=== PATIENT | female | born 1955 | race Caucasian/White ===

== ENCOUNTER → 2018-02-07 12:10 | Outpatient (CLI) | payer BC, SELFPAY ==
--- NOTE | 2018-02-07 | DI.MRI.S_ITS ---
PROCEDURE: MR LUMBAR SPINE WO CON INDICATIONS: Scoliosis/Radiculopathy, lumbar region TECHNIQUE: Noncontrast sagittal T1 spin echo and T2 fast echo, coronal T2, sagittal STIR, axial T1 and T2 fast spin echo through the lumbar spine. COMPARISON: [facility], MR, MR LUMBAR SPINE WO CON, 09/23/2015, 12:59. [facility] [place], CR, SPINE LUMB MIN 4VW, 09/13/2015, 15:05. FINDINGS: Image quality: Excellent. Alignment and Curvature: 5 lumbar type vertebral bodies are present by plain film. There is moderate to severe leftward curvature of the mid lumbar spine. There is mild grade 1 retrolisthesis of L1 on L2, and L2 on L3. There is mild grade 1 anterolisthesis of L4 on L5. Bone Marrow: Marrow is of normal overall signal. No acute vertebral body compression fractures. There is increased, severe Modic type I reactive signal within the endplates adjacent to the L2-L3 intervertebral disc. There is moderate reactive signal within the endplates adjacent to the L3-L4 and L4-L5 intervertebral discs. Mild reactive signal within the endplates adjacent to the L5-S1 intervertebral disc. Spinal Cord: Conus medullaris terminates at the L1-L2 disc space level. Visualized cord demonstrates normal signal and size. Paraspinous Soft Tissues: No paravertebral masses. L1-L2: Congenital canal stenosis. Moderate disc desiccation. Mild disc height loss. Mild diffuse disc bulge. Mild facet and ligamentum flavum hypertrophy. Moderate epidural lipomatosis. There is increased, moderate canal stenosis. Increased, mild left greater than right foraminal stenosis. L2-L3: Congenital canal stenosis. Moderate disc height loss and desiccation. Moderate diffuse disc bulge/osteophyte. Moderate facet and ligamentum hypertrophy. Mild epidural lipomatosis. Increased, severe canal stenosis. Increased, mild left and moderate right foraminal stenosis. L3-L4: Congenital canal stenosis. Severe disc height loss and desiccation. Moderate diffuse disc bulge. Moderate facet and ligament flavum hypertrophy. Mild epidural lipomatosis. Increased, severe canal stenosis. Increased, mild left and moderate right foraminal stenosis. L4-L5: Congenital canal stenosis. Moderate disc height loss and desiccation. Moderate diffuse disc bulge/osteophyte. Moderate facet and ligamentum flavum hypertrophy. Mild epidural lipomatosis. Increased, severe canal stenosis. Increased, moderate bilateral foraminal stenosis. L5-S1: Moderate disc height loss and desiccation. Moderate bilateral facet hypertrophy. Moderate diffuse epidural lipomatosis. No change in severe canal stenosis. No change in moderate bilateral foraminal stenosis. IMPRESSION: 1. Multilevel degenerative disc and facet disease, as well as ligamentum flavum hypertrophy and epidural lipomatosis. 2. Multilevel canal stenoses, worst at L2-L3, L3-L4, L4-L5, and L5-S1, where there are severe canal stenoses present. 3. Multilevel foraminal stenoses, worst at L2-L3 on the right, L3-L4 on the right, at L4-L5 bilaterally, and at L5-S1 bilaterally, where there are moderate foraminal stenoses present. Dictated by: Jie Powell M.D. on 02/07/2018 at 13:40 Approved by: Jie Powell M.D. on 02/07/2018 at 13:48
== END ==
PROVIDERS: PCP Physician Assistant Medical; Visit Provider Neurological Surgery
DX: M51.16 Intervertebral disc disorders with radiculopathy, lumbar region (principal); M51.17 Intervertebral disc disorders with radiculopathy, lumbosacral region; M48.061 Spinal stenosis, lumbar region without neurogenic claudication; M48.07 Spinal stenosis, lumbosacral region; M51.9 Unspecified thoracic, thoracolumbar and lumbosacral intervertebral disc disorder; E88.2 Lipomatosis, not elsewhere classified
CPT/HCPCS: 72148; 77080

== ENCOUNTER → 2018-03-14 13:00 | Outpatient (CLI) | payer BC, SELFPAY ==
--- NOTE | 2018-03-18 08:44 | PM.PFT.1 ---
Pulmonary Function Test Referral & Results Date Patient Seen: 03/14/18 Requesting provider: Fernando Chris Indication: Dyspnea upon exertion Results: The spirometry demonstrates an FVC of 1.68 L which is 66% of predicted. The FEV1 was measured at 1.38 L which is 71% of predicted. The FEV1/FVC ratio was 82 which is 106% of predicted. Following the administration of bronchodilator there was no appreciable change. Lung volumes show an SVC of 1.77 L which is 73% of predicted. The diffusing capacity was measured at 15.81 which is 97% of predicted. The maximum voluntary ventilation was reduced Interpretation: This study demonstrates perhaps mild her obstructive lung disease based on reduction in FEV1. Also reduction FEC suggesting incomplete excellent sheppard as well. There is also mild reduction in lung volumes suggesting perhaps some minimal degree of restrictive lung disease although could be an artifact due to incomplete exhalation as above. Clinical correlation suggested
== END ==
PROVIDERS: PCP Physician Assistant Medical; Visit Provider Internal Medicine
DX: R06.09 Other forms of dyspnea (principal)
CPT/HCPCS: 94060; 94726; 94729

== ENCOUNTER → 2018-03-19 14:49 | Outpatient (CLI) | payer BC, SELFPAY ==
--- NOTE | 2018-03-19 | DI.ECHO.S_ITS ---
[place] [facility]---------+ [facility] +---------+ : : [address] : : : : [id number] : : : : Phone: [phone] Echocardiogram Report + + :Name: NILTON STOCK Study Date: 03/19/2018 Height: 59 in : :[facility] Exam Location: IS Weight: 150 lb : : Gender: Female BSA: 1.6 m2 : :: 1955 Age: 63 yrs BP: 145/88 mmHg: :Reason For Study: DYSPNEA : : Performed By: Tanner Corrales : :Referring: DICKSON PATEL : + + Interpretation Summary The left ventricle is normal in size, wall thickness, and systolic function without any focal wall motion abnormalities with the ejection fraction visually estimated to be 60-65%. Diastolic parameters suggest a relaxation abnormality of the left ventricle, consistent with probable normal filling pressures. The right ventricle is normal in size and function. Pulmonary artery pressures cannot be estimated because of the lack of a measurable TR jet velocity but the IVC suggests a CVP of around 3 mmHg. Both atria are normal in size. There is no significant valvular heart disease. Procedure: A two-dimensional transthoracic echocardiogram with color flow and Doppler was performed. The study quality was technically adequate. There is no prior echocardiogram noted for this patient. The patient was in normal sinus rhythm during the exam. Left Ventricle: The left ventricle is normal in size, wall thickness, and systolic function without any focal wall motion abnormalities. The ejection fraction is estimated to be 60-65%. Diastolic parameters suggest a relaxation abnormality of the left ventricle, consistent with probable normal filling pressures. Right Ventricle: The right ventricle is normal in size and function. Atria: Both atria are normal in size. The interatrial septum is intact with no evidence for an atrial septal defect. Mitral Valve: The mitral valve is normal in structure and function. There is trace mitral regurgitation. Aortic Valve: The aortic valve is normal in structure and function. The aortic valve is trileaflet. The aortic valve opens well. No aortic regurgitation is present. Tricuspid Valve: The tricuspid valve is normal in structure and function. There is trace tricuspid regurgitation. Pulmonary artery pressures cannot be estimated because of the lack of a measurable TR jet velocity but the IVC suggests a CVP of around 3 mmHg. Pulmonic Valve: The pulmonic valve is not well visualized. There is no significant valvular heart disease. Great Vessels: The aortic root is normal size. The dimensions of the ascending aorta are normal. The pulmonary artery is normal size. The IVC is of normal diameter and collapses greater than 50% with a sniff. This suggests a low right atrial pressure of 3 mm Hg. Pericardium/ Pleura There is no pericardial effusion. There is no pleural effusion. MMode/2D Measurements & Calculations LVIDd: 4.3 cm Ao root diam: 2.4 cm LVIDs: 2.5 cm Aortic Jxn: 1.8 cm FS: 42.5 % asc Aorta Diam: 2.7 cm EPSS: 0.14 cm Ao Arch Diam (Prox Trans): 2.1 cm IVSd: 0.97 cm LVPWd: 0.93 cm LV lemus. diameter/BSA (cm/m^2): 2.6 LV sys. diameter/BSA (cm/m^2): 1.5 LA dimension: 3.4 cm RA long axis: 3.8 cm LA A2 area: 13.8 cm2 RA area: 10.6 cm2 LA A4 area: 15.1 cm2 RA vol: 25.2 ml LA length (vol): 4.8 cm RA : 15.4 ml/m2 LA vol: 37.0 ml IVC diam: 1.4 cm LA vol index: 22.7 ml/m2 Doppler Measurements & Calculations Ao V2 max: 137.9 cm/sec LVOT Max Luis: 101.6 cm/sec Ao V2 mean: 101.1 cm/sec LV V1 max P.1 mmHg Ao max P.6 mmHg LV V1 VTI: 24.2 cm Ao mean P.4 mmHg sev ratio: 0.78 Ao V2 VTI: 30.8 cm MV E max luis: 87.6 cm/sec PA V2 max: 84.2 cm/sec MV A max luis: 88.5 cm/sec PA V2 mean: 60.3 cm/sec MV E/A: 0.99 PA mean P.6 mmHg Med Peak E' Luis: 4.4 cm/sec PA pr(Accel): 9.1 mmHg E/E' med: 19.7 PA Accel Time: 0.15 sec Lat Peak E' Luis: 7.0 cm/sec E/E' lat: 12.5 E/e' average: 16.1 MV dec time: 0.20 sec Pulm A Revs Luis: 27.4 cm/sec Electronically signed by: Landry christian 03/19/2018 04:56 Reading Physician:ISHA
== END ==
PROVIDERS: PCP Physician Assistant Medical; Visit Provider Internal Medicine
DX: R06.00 Dyspnea, unspecified (principal)
CPT/HCPCS: 93306

== ENCOUNTER → 2018-05-26 12:17 | Outpatient (CLI) | payer BC, SELFPAY ==
--- NOTE | 2018-05-26 | DI.CT.S_ITS ---
PROCEDURE: CT CHEST WO CON INDICATIONS: Dyspnea, TECHNIQUE: Noncontrast 5 mm thick sections acquired from the pulmonary apices to the posterior costophrenic angles. 7 mm thick coronal and sagittal MIP reformats were then acquired. For radiation dose reduction, the following was used: automated exposure control, adjustment of mA and/or kV according to patient size. COMPARISON: None. FINDINGS: Image quality: Excellent. Lungs and pleura: No acute air space opacities. There is a band of linear scarring or atelectasis left lower lobe No pleural effusions or pneumothorax. Central and peripheral airways are patent and normal in caliber. Mediastinum: Heart size is normal. No pericardial effusion. No mediastinal adenopathy by size criteria. Thoracic aorta and central pulmonary arteries are normal in size. Esophagus is normal in caliber. No hiatal hernia. Bones and chest wall: No suspicious bony lesions. No vertebral body compression fractures. No axillary or supraclavicular adenopathy by size criteria. Thyroid gland appears normal where well visualized. Abdomen: Visualized upper abdominal solid organs and bowel loops appear normal in the absence of contrast except for several left renal calcifications, punctate, partially visualized. IMPRESSION: Through the lung parenchyma no infection or neoplasm is suspected. No pulmonary fibrosis or alveolitis is seen. There is a band of mild linear atelectasis or scarring left lower lobe. Incidental note is made of several left renal punctate calcifications, with an appearance suggestive of medullary calcinosis. Dictated by: Yuriy Isaac M.D. on 05/26/2018 at 12:58 Approved by: Yuriy Isaac M.D. on 05/26/2018 at 13:00
== END ==
PROVIDERS: PCP Physician Assistant Medical; Visit Provider Internal Medicine
DX: R06.00 Dyspnea, unspecified (principal); N28.89 Other specified disorders of kidney and ureter
CPT/HCPCS: 71250

== ENCOUNTER → 2018-10-30 12:00 | Outpatient (CLI) | payer BC, SELFPAY ==
--- NOTE | 2018-10-30 | DI.US.S_ITS ---
PROCEDURE: US ARTERIAL DUPLEX LE BI INDICATIONS: CLAUDICATION BILATERAL TECHNIQUE: Color and pulse Doppler interrogation was performed of both lower extremity arterial systems, with image documentation. COMPARISON: None. FINDINGS: Right lower extremity: Common femoral artery: 155 cm/sec, with monophasic flow. Deep femoral artery: 55 cm/sec, with monophasic flow. Proximal superficial femoral artery: 543 cm/sec, with monophasic flow. Mid superficial femoral artery: 128 cm/sec, with monophasic flow. Distal superficial femoral artery: 80 cm/sec, with monophasic flow. Popliteal artery: 40-75 cm/sec, with monophasic flow. Posterior tibial artery: 46-51 cm/sec, with monophasic flow. Anterior tibial artery/dorsalis pedis: 37-43 cm/sec, with monophasic flow. House-scale imaging description: Moderate diffuse plaque Left lower extremity: Common femoral artery: 246 cm/sec, with triphasic flow. Deep femoral artery: 215 cm/sec, with triphasic flow. Proximal superficial femoral artery: 175 cm/sec, with triphasic flow. Mid superficial femoral artery: 171 cm/sec, with triphasic flow. Distal superficial femoral artery: 88 cm/sec, with triphasic flow. Popliteal artery: 75-87 cm/sec, with triphasic flow. Posterior tibial artery: 69-83 cm/sec, with triphasic flow. Anterior tibial artery/dorsalis pedis: 53-96 cm/sec, with triphasic flow. House-scale imaging description: Moderate diffuse plaque IMPRESSION: 1. Bilateral inflow stenoses. 2. Right-sided outflow stenosis. 3. Probable left-sided runoff vessel stenoses. Dictated by: Jie Powell M.D. on 10/30/2018 at 14:48 Approved by: Jie Powell M.D. on 10/30/2018 at 15:01
== END ==
PROVIDERS: PCP Family Medicine; Visit Provider Family Medicine
DX: I70.213 Atherosclerosis of native arteries of extremities with intermittent claudication, bilateral legs (principal)
CPT/HCPCS: 93925

== ENCOUNTER → 2019-01-05 16:02 | Outpatient (CLI) | payer BC, SELFPAY ==
--- NOTE | 2019-01-05 | DI.RAD.S_ITS ---
PROCEDURE: XR T AND L SPINE 2 TO 3 VIEWS INDICATIONS: Scoliosis TECHNIQUE: 2 views acquired of the thoracolumbar spine. COMPARISON: CT chest 05/26/2018, MRI lumbar spine at 02/07/2018. FINDINGS: Bones: Lumbar spine fixation hardware spanning the L2-S1 levels with intervertebral body spacers. The pedicle screws project in the expected locations. No santiago-screw lucency. No hardware or osseous fracture seen. Vertebral body height is preserved. No suspicious osseous lesion. There is minimal levoscoliosis of the lumbar spine centered at L3-L4. There is minimal extra scoliosis of the thoracic spine. There is minimal increased lumbar lordosis. Soft tissues: No suspicious soft tissue calcifications. Abdominal aortic vascular calcification. Cardiomediastinal silhouette is normal. The lungs are clear. No pleural effusion. IMPRESSION: Minimal levoscoliosis of the lumbar spine. Fixation hardware is intact. No compression fractures. Dictated by: Ranjeet Momin M.D. on 01/05/2019 at 16:40 Approved by: Ranjeet Momin M.D. on 01/05/2019 at 16:47
== END ==
PROVIDERS: PCP Family Medicine; Visit Provider Neurological Surgery
DX: M41.9 Scoliosis, unspecified (principal)
CPT/HCPCS: 72082

== ENCOUNTER → 2020-02-10 08:53 | Outpatient (CLI) | payer BC, SELFPAY ==
--- NOTE | 2020-02-10 | DI.US.S_ITS ---
PROCEDURE: US RENAL COMPLETE INDICATIONS: Chronic Kidney TECHNIQUE: Real-time scanning was performed of the kidneys and bladder, with image documentation. COMPARISON: None. FINDINGS: Kidneys: Right kidney measures 8.5 cm long; left kidney measures 9.8 cm long. Right renal cortical thickness is 0.4 cm; left renal cortical thickness is 0.7 cm. Renal cortical echotexture is increased bilaterally. No hydronephrosis or nephrolithiasis. No suspicious solid mass lesions. Multiple bilateral renal cysts present, largest measuring up to 2.5 cm on the right multiple bilateral calcifications seen at the cortical medullary junctions. Bladder: Pre-void bladder volume is 43 mL. Post-void residual is 0 mL. Pre-void images demonstrate no intraluminal masses or stones. On pre-void images, left ureteral jets are noted with color Doppler interrogation. (Of note, ureteral jets may not be detectable in up to 25% of cases due to insufficient differences in specific gravity between ureteral and bladder urine). Miscellaneous: No free pelvic fluid. 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 Echogenic renal cortex and bilateral renal cortical thinning consistent with medical renal disease. Bilateral renal cysts. Dictated by: Wm Velazquez [facility] Interpreted: Lyndon Jackson MD on 02/11/2020 at 12:05 Approved by: Lyndon Jackson M.D. on 02/11/2020 at 14:50
[2020-02-10 10:27] LABS: Add Manual Diff / Slide Review NO; Basophils Absolute Auto 100 /uL (0-100); Eosinophils Absolute Auto 200 /uL (0-450); Eosinophils Percent Auto 3.8 % (2-4); Hematocrit 28.4 % (36-46); Hemoglobin 9.4 g/dL (12.0-16.0); Lymphocytes Absolute Auto 1000 /uL (1100-4500); Lymphocytes Percent Auto 19.1 % (25-40); Mean Corpuscular HGB Conc 33.1 % (30-36); Mean Corpuscular Hemoglobin 34.1 PG (26-34); Mean Corpuscular Volume 102.9 fL (80-100); Monocytes Absolute Auto 400 /uL (0-900); Monocytes Percent Auto 8.1 % (3-14); Neutrophils Absolute Auto 3600 /uL (1500-7000); Platelet Count 185 X10^3/uL (150-400); Red Blood Cell Count 2.76 X10^6/uL (4.0-5.2); Red Cell Distribution Width 13.6 % (11.6-14.8); White Blood Cell Count 5.3 X10^3/uL (4.5-11.0)
[2020-02-10 11:13] LABS: HEMOLYSIS < 15 (0-50); Iron 61 ug/dL (37-170)
[2020-02-10 11:21] LABS: BUN Creatinine Ratio 16.8 (6-22); Blood Urea Nitrogen 55 mg/dL (7-17); Calcium 8.9 mg/dL (8.4-10.2); Carbon Dioxide 24 mmol/L (22-32); Chloride 104 mmol/L (98-107); Estimated Glomerular Filt Rate 14.2 mL/min (>60); Glucose 101 mg/dL (80-110); HEMOLYSIS < 15 (0-50); Potassium 3.7 mmol/L (3.4-5.1); Sodium 138 mmol/L (137-145)
[2020-02-10 11:26] LABS: Percent Iron Saturation 21 % (15-50); Total Iron Binding Capacity 286 ug/dL (265-497); Transferrin 227 mg/dL (206-381)
== END ==
PROVIDERS: PCP Family Medicine; Referring Provider Physician Assistant Medical; Visit Provider Physician Assistant Medical
DX: N18.5 Chronic kidney disease, stage 5 (principal); D63.1 Anemia in chronic kidney disease; N28.1 Cyst of kidney, acquired
CPT/HCPCS: 36415; 76770; 80048; 83540; 83550; 85025

== ENCOUNTER → 2020-02-10 10:10 | Outpatient (CLI) | payer MEDICARE, BC, SELFPAY ==
[2020-02-10 10:42] VITALS: BP 129/70; PULSE 64; RESP 18; TEMP 36.2; O2SAT 97
[2020-02-10] MEDS: DARBEPOETIN 60 MCG/0.3 ML SYRINGE SUBCUT (10:58)
== END ==
PROVIDERS: PCP Family Medicine; Referring Provider Family Medicine; Visit Provider Physician Assistant Medical
DX: N18.4 Chronic kidney disease, stage 4 (severe) (principal); D63.1 Anemia in chronic kidney disease; I12.9 Hypertensive chronic kidney disease with stage 1 through stage 4 chronic kidney disease, or unspecified chronic kidney disease
CPT/HCPCS: 36415; 76770; 80048; 83540; 83550; 85025; 96372; J0881

== ENCOUNTER → 2020-02-24 13:26 | Outpatient (CLI) | payer MEDICARE, BC, SELFPAY ==
[2020-02-24 15:07] LABS: Add Manual Diff / Slide Review NO; Basophils Absolute Auto 100 /uL (0-100); Basophils Percent Auto 1.3 % (0-2); Eosinophils Absolute Auto 300 /uL (0-450); Eosinophils Percent Auto 5.8 % (2-4); Hematocrit 32.4 % (36-46); Hemoglobin 10.7 g/dL (12.0-16.0); Lymphocytes Absolute Auto 1100 /uL (1100-4500); Lymphocytes Percent Auto 21.7 % (25-40); Mean Corpuscular Hemoglobin 34.3 PG (26-34); Mean Corpuscular Volume 103.8 fL (80-100); Monocytes Absolute Auto 500 /uL (0-900); Monocytes Percent Auto 10.2 % (3-14); Neutrophils Absolute Auto 3100 /uL (1500-7000); Platelet Count 179 X10^3/uL (150-400); Red Blood Cell Count 3.13 X10^6/uL (4.0-5.2); Red Cell Distribution Width 13.9 % (11.6-14.8)
== END ==
PROVIDERS: PCP Family Medicine; Referring Provider Specialist; Visit Provider Specialist
DX: D63.1 Anemia in chronic kidney disease (principal)
CPT/HCPCS: 36415; 85025

== ENCOUNTER → 2020-02-24 14:00 | Outpatient (CLI) | payer MEDICARE, BC, SELFPAY ==
[2020-02-24] MEDS: DARBEPOETIN 60 MCG/0.3 ML SYRINGE SUBCUT (15:34)
[2020-02-24 16:35] VITALS: BP 160/80; PULSE 70; RESP 18; O2SAT 98
== END ==
PROVIDERS: PCP Family Medicine; Referring Provider Specialist; Visit Provider Specialist
DX: I12.9 Hypertensive chronic kidney disease with stage 1 through stage 4 chronic kidney disease, or unspecified chronic kidney disease (principal); N18.4 Chronic kidney disease, stage 4 (severe); D63.1 Anemia in chronic kidney disease
CPT/HCPCS: 36415; 85025; 96372; J0881

== ENCOUNTER → 2020-06-28 14:11 | Outpatient (CLI) | payer MEDICARE, BC, SELFPAY ==
[2020-06-28 15:40] LABS: Add Manual Diff / Slide Review NO; Basophils Absolute Auto 100 /uL (0-100); Basophils Percent Auto 1.5 % (0-2); Eosinophils Absolute Auto 400 /uL (0-450); Eosinophils Percent Auto 6.3 % (2-4); Hemoglobin 10.7 g/dL (12.0-16.0); Lymphocytes Absolute Auto 1300 /uL (1100-4500); Lymphocytes Percent Auto 19.2 % (25-40); Mean Corpuscular HGB Conc 33.5 % (30-36); Mean Corpuscular Hemoglobin 34.3 PG (26-34); Mean Corpuscular Volume 102.5 fL (80-100); Monocytes Absolute Auto 500 /uL (0-900); Monocytes Percent Auto 7.1 % (3-14); Neutrophils Absolute Auto 4300 /uL (1500-7000); Neutrophils Percent Auto 65.9 % (50-75); Platelet Count 224 X10^3/uL (150-400); Red Blood Cell Count 3.12 X10^6/uL (4.0-5.2); Red Cell Distribution Width 13.6 % (11.6-14.8); White Blood Cell Count 6.5 X10^3/uL (4.5-11.0)
[2020-06-28 15:59] LABS: BUN Creatinine Ratio 16.3 (6-22); Blood Urea Nitrogen 67 mg/dL (7-17); Calcium 10.2 mg/dL (8.4-10.2); Carbon Dioxide 23 mmol/L (22-32); Chloride 105 mmol/L (98-107); Estimated Glomerular Filt Rate 10.9 mL/min (>60); Glucose 91 mg/dL (80-110); HEMOLYSIS 16 (0-50); Potassium 4.2 mmol/L (3.4-5.1); Sodium 138 mmol/L (137-145)
[2020-06-28 16:55] LABS: HEMOLYSIS < 15 (0-50); Iron 99 ug/dL (37-170)
[2020-06-28 17:13] LABS: Percent Iron Saturation 40 % (15-50); Total Iron Binding Capacity 250 ug/dL (265-497); Transferrin 225 mg/dL (206-381)
== END ==
PROVIDERS: PCP Physician Assistant Medical; Referring Provider Specialist; Visit Provider Specialist
DX: N18.9 Chronic kidney disease, unspecified (principal); D63.1 Anemia in chronic kidney disease
CPT/HCPCS: 36415; 80048; 83540; 83550; 85025

== ENCOUNTER → 2020-06-29 11:13 | Outpatient (CLI) | payer MEDICARE, BC, SELFPAY ==
--- NOTE | 2020-06-28 16:29 | PC.NURSE ---
epo injection: Hgb 10.7; parameters are 10.8-11. Left message for pt to come in for appt 06/29/20
[2020-06-29 11:29] VITALS: BP 149/78; PULSE 74; RESP 18
[2020-06-29] MEDS: DARBEPOETIN 60 MCG/0.3 ML SYRINGE SUBCUT (11:51)
== END ==
PROVIDERS: PCP Physician Assistant Medical; Referring Provider Specialist; Visit Provider Specialist
DX: N18.9 Chronic kidney disease, unspecified (principal); D63.1 Anemia in chronic kidney disease
CPT/HCPCS: 96372; J0881

== ENCOUNTER → 2020-07-12 13:14 | Outpatient (CLI) | payer MEDICARE, BC, SELFPAY ==
[2020-07-12 14:09] LABS: Add Manual Diff / Slide Review NO; Basophils Absolute Auto 100 /uL (0-100); Basophils Percent Auto 1.7 % (0-2); Eosinophils Absolute Auto 300 /uL (0-450); Eosinophils Percent Auto 4.7 % (2-4); Hematocrit 32.2 % (36-46); Hemoglobin 10.6 g/dL (12.0-16.0); Lymphocytes Absolute Auto 1000 /uL (1100-4500); Lymphocytes Percent Auto 16.8 % (25-40); Mean Corpuscular HGB Conc 32.9 % (30-36); Mean Corpuscular Hemoglobin 34.1 PG (26-34); Mean Corpuscular Volume 103.5 fL (80-100); Monocytes Absolute Auto 500 /uL (0-900); Neutrophils Absolute Auto 4300 /uL (1500-7000); Neutrophils Percent Auto 68.8 % (50-75); Platelet Count 212 X10^3/uL (150-400); Red Blood Cell Count 3.11 X10^6/uL (4.0-5.2); Red Cell Distribution Width 14.1 % (11.6-14.8); White Blood Cell Count 6.2 X10^3/uL (4.5-11.0)
[2020-07-12 14:56] LABS: BUN Creatinine Ratio 14.9 (6-22); Blood Urea Nitrogen 63 mg/dL (7-17); Calcium 10.1 mg/dL (8.4-10.2); Carbon Dioxide 24 mmol/L (22-32); Chloride 101 mmol/L (98-107); Estimated Glomerular Filt Rate 10.5 mL/min (>60); Glucose 102 mg/dL (80-110); HEMOLYSIS < 15 (0-50); Potassium 4.1 mmol/L (3.4-5.1); Sodium 138 mmol/L (137-145)
== END ==
PROVIDERS: PCP Physician Assistant Medical; Referring Provider Specialist; Visit Provider Specialist
DX: N18.9 Chronic kidney disease, unspecified (principal); D63.1 Anemia in chronic kidney disease
CPT/HCPCS: 36415; 80048; 85025

== ENCOUNTER → 2020-07-13 11:18 | Outpatient (CLI) | payer MEDICARE, BC, SELFPAY ==
[2020-07-13 11:52] VITALS: BP 126/71; PULSE 74; RESP 18; TEMP 36.3
[2020-07-13] MEDS: DARBEPOETIN 60 MCG/0.3 ML SYRINGE SUBCUT (12:12)
== END ==
PROVIDERS: PCP Physician Assistant Medical; Referring Provider Specialist; Visit Provider Specialist
DX: N18.9 Chronic kidney disease, unspecified (principal); D63.1 Anemia in chronic kidney disease
CPT/HCPCS: 96372; J0881

== ENCOUNTER → 2020-07-26 16:25 | Outpatient (CLI) | payer MEDICARE, BC, SELFPAY ==
[2020-07-26 17:55] LABS: HEMOLYSIS < 15 (0-50); Iron 58 ug/dL (37-170)
[2020-07-26 17:56] LABS: BUN Creatinine Ratio 16.5 (6-22); Blood Urea Nitrogen 67 mg/dL (7-17); Calcium 10.7 mg/dL (8.4-10.2); Carbon Dioxide 22 mmol/L (22-32); Chloride 103 mmol/L (98-107); Glucose 102 mg/dL (80-110); HEMOLYSIS < 15 (0-50); Potassium 3.9 mmol/L (3.4-5.1); Sodium 136 mmol/L (137-145)
[2020-07-26 18:05] LABS: Add Manual Diff / Slide Review NO; Basophils Absolute Auto 100 /uL (0-100); Basophils Percent Auto 1.3 % (0-2); Eosinophils Absolute Auto 400 /uL (0-450); Eosinophils Percent Auto 6.5 % (2-4); Hematocrit 35.3 % (36-46); Hemoglobin 11.6 g/dL (12.0-16.0); Lymphocytes Absolute Auto 1400 /uL (1100-4500); Lymphocytes Percent Auto 21.9 % (25-40); Mean Corpuscular HGB Conc 32.8 % (30-36); Mean Corpuscular Hemoglobin 34.2 PG (26-34); Mean Corpuscular Volume 104.3 fL (80-100); Monocytes Absolute Auto 600 /uL (0-900); Monocytes Percent Auto 8.6 % (3-14); Neutrophils Absolute Auto 4000 /uL (1500-7000); Neutrophils Percent Auto 61.7 % (50-75); Platelet Count 227 X10^3/uL (150-400); Red Blood Cell Count 3.39 X10^6/uL (4.0-5.2); Red Cell Distribution Width 14.4 % (11.6-14.8); White Blood Cell Count 6.4 X10^3/uL (4.5-11.0)
[2020-07-26 18:07] LABS: Percent Iron Saturation 22 % (15-50); Total Iron Binding Capacity 260 ug/dL (265-497); Transferrin 240 mg/dL (206-381)
== END ==
PROVIDERS: PCP Physician Assistant Medical; Referring Provider Physician Assistant Medical; Visit Provider Physician Assistant Medical
DX: N18.9 Chronic kidney disease, unspecified (principal); D63.1 Anemia in chronic kidney disease
CPT/HCPCS: 36415; 80048; 83540; 83550; 85025

== ENCOUNTER → 2020-08-02 10:24 | Outpatient (CLI) | payer MEDICARE, BC, SELFPAY ==
--- NOTE | 2020-08-02 10:36 | DI.CT.S_ITS ---
PROCEDURE: CT ABDOMEN PELVIS WO CON INDICATIONS: Awaiting organ transplant status TECHNIQUE: After the administration of oral contrast, 5 mm thick sections acquired from the diaphragms to the symphysis. 5 mm coronal and sagittal reformats were performed. For radiation dose reduction, the following was used: automated exposure control, adjustment of mA and/or kV according to patient size. COMPARISON: [facility], , US RENAL COMPLETE, 02/10/2020, 9:15. FINDINGS: Image quality: Extensive metal artifact from prior lumbosacral spine fusion surgeries is present. This reduces quality of visualization. Absence of intravenous contrast also reduces quality of visceral and soft tissue visualization.. ABDOMEN: Lung bases: Lung bases are clear. Heart size is normal. Solid organs: Liver is normal in size. Gallbladder appears normal . Pancreas is normal in size. Spleen is normal in size. No adrenal nodules. Both kidneys are normal in size, without hydronephrosi. No obstructive nephrolithiasis is found. Medullary calcinosis is prominent in this patient bilaterally symmetric. No urinary tract distension is seen. What appears to be several 1.5 cm renal cortical cysts can be seen, best identified at the anterolateral left mid renal cortex. Cysts were also seen on comparison ultrasound 02/10/20. Peritoneum and bowel: Bowel loops demonstrate normal wall thickness and caliber. No free fluid or air. Nodes and vessels: No retroperitoneal or mesenteric adenopathy by size criteria. Aorta and inferior vena cava are normal in size. Miscellaneous: No ventral hernias. PELVIS: Genitourinary: Bladder wall thickness is normal. No bladder calculus is seen. Miscellaneous: No inguinal hernias or adenopathy. Bones: No suspicious bony lesions. No vertebral body compression fractures. IMPRESSION: Medullary calcinosis, bilaterally prominent. No sign of urinary tract obstruction or calculus. Several scattered small renal cortical cysts are also seen, also present on prior ultrasound. Bladder appears normal at this time. Dictated by: Yuriy Isaac M.D. on 08/02/2020 at 13:52 Approved by: Yuriy Isaac M.D. on 08/02/2020 at 13:56
== END ==
PROVIDERS: PCP Physician Assistant Medical; Referring Provider Specialist; Visit Provider Specialist
DX: Z76.82 Awaiting organ transplant status (principal); E83.59 Other disorders of calcium metabolism; N28.1 Cyst of kidney, acquired; Z98.1 Arthrodesis status
CPT/HCPCS: 74176

== ENCOUNTER → 2020-08-10 09:18 | Outpatient (CLI) | payer MEDICARE, BC, SELFPAY ==
[2020-08-10 09:38] LABS: Add Manual Diff / Slide Review NO; Basophils Absolute Auto 0 /uL (0-100); Basophils Percent Auto 0.5 % (0-2); Eosinophils Absolute Auto 400 /uL (0-450); Eosinophils Percent Auto 6.2 % (2-4); Hematocrit 30.8 % (36-46); Hemoglobin 10.3 g/dL (12.0-16.0); Lymphocytes Absolute Auto 1100 /uL (1100-4500); Lymphocytes Percent Auto 17.6 % (25-40); Mean Corpuscular HGB Conc 33.6 % (30-36); Mean Corpuscular Hemoglobin 34.5 PG (26-34); Mean Corpuscular Volume 102.6 fL (80-100); Monocytes Absolute Auto 500 /uL (0-900); Monocytes Percent Auto 7.7 % (3-14); Neutrophils Absolute Auto 4200 /uL (1500-7000); Platelet Count 230 X10^3/uL (150-400); Red Cell Distribution Width 13.4 % (11.6-14.8); White Blood Cell Count 6.2 X10^3/uL (4.5-11.0)
[2020-08-10 09:46] LABS: Alanine Aminotransferase 21 IU/L (<35); Albumin 3.8 g/dL (3.5-5.0); Albumin Globulin Ratio 1.5 (1.0-2.8); Alkaline Phosphatase 50 U/L (38-126); Aspartate Aminotransferase 23 IU/L (14-36); BUN Creatinine Ratio 19.7 (6-22); Bilirubin Total 0.2 mg/dL (0.2-1.3); Blood Urea Nitrogen 75 mg/dL (7-17); Calcium 9.8 mg/dL (8.4-10.2); Carbon Dioxide 23 mmol/L (22-32); Chloride 105 mmol/L (98-107); Estimated Glomerular Filt Rate 11.9 mL/min (>60); Globulin 2.5 g/dL (1.7-4.1); Glucose 131 mg/dL (80-110); HEMOLYSIS < 15 (0-50); Potassium 3.8 mmol/L (3.4-5.1); Sodium 137 mmol/L (137-145); Total Protein 6.3 g/dL (6.3-8.2)
[2020-08-10 10:00] LABS: HEMOLYSIS < 15 (0-50); Iron 58 ug/dL (37-170)
[2020-08-10 10:11] LABS: Percent Iron Saturation 25 % (15-50); Total Iron Binding Capacity 228 ug/dL (265-497); Transferrin 203 mg/dL (206-381)
== END ==
PROVIDERS: PCP Physician Assistant Medical; Referring Provider Specialist; Visit Provider Specialist
DX: D63.1 Anemia in chronic kidney disease (principal); D68.1 Hereditary factor XI deficiency; N18.9 Chronic kidney disease, unspecified
CPT/HCPCS: 36415; 80053; 83540; 83550; 85025

== ENCOUNTER → 2020-08-10 11:22 | Outpatient (CLI) | payer MEDICARE, BC, SELFPAY ==
[2020-08-10 11:36] VITALS: BP 147/74; PULSE 56; RESP 18; TEMP 36.3; O2SAT 95
[2020-08-10] MEDS: DARBEPOETIN 60 MCG/0.3 ML SYRINGE SUBCUT (11:49)
--- NOTE | 2020-08-10 15:07 | PC.NURSE ---
Aranesp: This RN informed pt that unfortunately [facility] would not be administering Aranesp any longer. Pt agreed to contact ordering provider to create plan for future medication options.
== END ==
PROVIDERS: PCP Physician Assistant Medical; Referring Provider Specialist; Visit Provider Specialist
DX: N18.9 Chronic kidney disease, unspecified (principal); D63.1 Anemia in chronic kidney disease; D68.1 Hereditary factor XI deficiency
CPT/HCPCS: 36415; 80053; 83540; 83550; 85025; 96372; J0881

== ENCOUNTER → 2020-08-22 09:10 | Outpatient (CLI) | payer MEDICARE, BC, SELFPAY ==
--- NOTE | 2020-08-22 | DI.US.S_ITS ---
PROCEDURE: US RENAL COMPLETE INDICATIONS: Unspecified abdominal pain TECHNIQUE: Real-time scanning was performed of the kidneys and bladder, with image documentation. COMPARISON: [facility], , RENAL COMPLETE, 02/10/2020, 9:15. FINDINGS: Kidneys: Kidneys are normal in size. Right kidney measures 7.3 cm long; left kidney measures 7.8 cm long. Renal cortical echotexture is normal. No hydronephrosis or nephrolithiasis. No suspicious solid mass lesions. Multiple cystic foci are noted bilaterally the largest on the right measures 1.0 cm largest on the left measures 1.5 cm. Overall, they appear relatively stable. It is noted the previous 2.5 cm right renal cyst is not visualized on current exam. Bladder: Pre-void bladder volume is 81 mL. Post-void residual is 0 mL. Pre-void images demonstrate no intraluminal masses or stones. On pre-void images, neither ureteral jets are noted with color Doppler interrogation. (Of note, ureteral jets may not be detectable in up to 25% of cases due to insufficient differences in specific gravity between ureteral and bladder urine). Miscellaneous: No free pelvic fluid. IMPRESSION: Mildly atrophic kidneys with multiple cysts. Dictated by: Sharri Son M.D. on 08/22/2020 at 15:21 Approved by: Sharri Son M.D. on 08/22/2020 at 15:24
== END ==
PROVIDERS: PCP Physician Assistant Medical; Referring Provider Specialist; Visit Provider Specialist
DX: R10.9 Unspecified abdominal pain (principal); N28.1 Cyst of kidney, acquired; N26.1 Atrophy of kidney (terminal)
CPT/HCPCS: 76770

== ENCOUNTER → 2020-08-25 09:49 | Outpatient (CLI) | payer MEDICARE, BC, SELFPAY ==
[2020-08-25 10:26] LABS: Add Manual Diff / Slide Review NO; Basophils Absolute Auto 100 /uL (0-100); Basophils Percent Auto 1.3 % (0-2); Eosinophils Absolute Auto 400 /uL (0-450); Eosinophils Percent Auto 7.6 % (2-4); Hematocrit 31.7 % (36-46); Hemoglobin 10.5 g/dL (12.0-16.0); Lymphocytes Absolute Auto 1100 /uL (1100-4500); Lymphocytes Percent Auto 20.6 % (25-40); Mean Corpuscular Hemoglobin 34.1 PG (26-34); Mean Corpuscular Volume 103.4 fL (80-100); Monocytes Absolute Auto 500 /uL (0-900); Neutrophils Absolute Auto 3100 /uL (1500-7000); Neutrophils Percent Auto 60.5 % (50-75); Platelet Count 208 X10^3/uL (150-400); Red Blood Cell Count 3.07 X10^6/uL (4.0-5.2); Red Cell Distribution Width 13.6 % (11.6-14.8); White Blood Cell Count 5.1 X10^3/uL (4.5-11.0)
[2020-08-25 10:45] LABS: BUN Creatinine Ratio 17.1 (6-22); Blood Urea Nitrogen 64 mg/dL (7-17); Calcium 9.4 mg/dL (8.4-10.2); Carbon Dioxide 23 mmol/L (22-32); Chloride 103 mmol/L (98-107); Estimated Glomerular Filt Rate 12.1 mL/min (>60); Glucose 93 mg/dL (80-110); HEMOLYSIS < 15 (0-50); Potassium 3.7 mmol/L (3.4-5.1); Sodium 139 mmol/L (137-145)
[2020-08-25 17:04] LABS: HEMOLYSIS < 15 (0-50); Iron 49 ug/dL (37-170)
[2020-08-25 17:40] LABS: Percent Iron Saturation 19 % (15-50); Total Iron Binding Capacity 263 ug/dL (265-497); Transferrin 221 mg/dL (206-381)
== END ==
PROVIDERS: PCP Physician Assistant Medical; Referring Provider Specialist; Visit Provider Specialist
DX: D63.1 Anemia in chronic kidney disease; N18.9 Chronic kidney disease, unspecified
CPT/HCPCS: 36415; 80048; 83540; 83550; 85025; J0881

== ENCOUNTER → 2020-08-25 11:26 | Outpatient (CLI) | payer MEDICARE, BC, SELFPAY ==
[2020-08-25 11:37] VITALS: BP 107/58; PULSE 76; RESP 18; TEMP 36.6; O2SAT 94
[2020-08-25] MEDS: DARBEPOETIN 60 MCG/0.3 ML SYRINGE SUBCUT (12:17)
== END ==
PROVIDERS: PCP Physician Assistant Medical; Referring Provider Specialist; Visit Provider Specialist
DX: N18.9 Chronic kidney disease, unspecified (principal); D63.1 Anemia in chronic kidney disease
CPT/HCPCS: 36415; 80048; 83540; 83550; 85025; 96372; J0881

== ENCOUNTER → 2020-09-07 09:56 | Outpatient (CLI) | payer MEDICARE, BC, SELFPAY ==
[2020-09-07 10:17] LABS: Add Manual Diff / Slide Review NO; Basophils Absolute Auto 0 /uL (0-100); Basophils Percent Auto 0.9 % (0-2); Eosinophils Absolute Auto 300 /uL (0-450); Eosinophils Percent Auto 5.9 % (2-4); Hematocrit 34.5 % (36-46); Hemoglobin 11.5 g/dL (12.0-16.0); Lymphocytes Absolute Auto 1000 /uL (1100-4500); Lymphocytes Percent Auto 17.7 % (25-40); Mean Corpuscular HGB Conc 33.2 % (30-36); Mean Corpuscular Hemoglobin 34.4 PG (26-34); Mean Corpuscular Volume 103.5 fL (80-100); Monocytes Absolute Auto 600 /uL (0-900); Monocytes Percent Auto 10.1 % (3-14); Neutrophils Absolute Auto 3600 /uL (1500-7000); Neutrophils Percent Auto 65.4 % (50-75); Platelet Count 194 X10^3/uL (150-400); Red Blood Cell Count 3.34 X10^6/uL (4.0-5.2); Red Cell Distribution Width 14.1 % (11.6-14.8); White Blood Cell Count 5.5 X10^3/uL (4.5-11.0)
== END ==
PROVIDERS: PCP Physician Assistant Medical; Referring Provider Specialist; Visit Provider Specialist
DX: D63.1 Anemia in chronic kidney disease (principal)
CPT/HCPCS: 36415; 85025

== ENCOUNTER → 2020-09-07 11:27 | Outpatient (CLI) | payer MEDICARE, BC, SELFPAY ==
--- NOTE | 2020-09-07 11:37 | PHA.NOTE ---
Aranesp Injection: Patient is here for Aranexp 60mg SubQ injection every 2 weeks. Today Hgb/Hct = 11.5/34.5 Per MD order to hold Aranesp injection if Hgb above 11. Contacted Dr. Cerna office, spoke CLIFFORD Chun, notified Aranesp dose is held today per Hgb result and patient does not need to switch to Epoetin until 10/05/2020. Adiel will make note and notify MD. Spoke to DUNCAN Arredondo, to schedule patient for Aranesp injection in 2 weeks.
== END ==
PROVIDERS: PCP Physician Assistant Medical; Referring Provider Specialist; Visit Provider Specialist
DX: N18.9 Chronic kidney disease, unspecified (principal); D63.1 Anemia in chronic kidney disease

== ENCOUNTER → 2020-09-20 09:26 | Outpatient (CLI) | payer MEDICARE, BC, SELFPAY ==
[2020-09-20 10:05] LABS: Add Manual Diff / Slide Review NO; Basophils Absolute Auto 0 /uL (0-100); Basophils Percent Auto 0.7 % (0-2); Eosinophils Absolute Auto 400 /uL (0-450); Hematocrit 34.6 % (36-46); Hemoglobin 11.3 g/dL (12.0-16.0); Lymphocytes Absolute Auto 1200 /uL (1100-4500); Mean Corpuscular HGB Conc 32.7 % (30-36); Mean Corpuscular Hemoglobin 33.8 PG (26-34); Mean Corpuscular Volume 103.3 fL (80-100); Monocytes Absolute Auto 600 /uL (0-900); Monocytes Percent Auto 8.7 % (3-14); Neutrophils Absolute Auto 4600 /uL (1500-7000); Neutrophils Percent Auto 67.6 % (50-75); Platelet Count 226 X10^3/uL (150-400); Red Blood Cell Count 3.35 X10^6/uL (4.0-5.2); Red Cell Distribution Width 13.4 % (11.6-14.8); White Blood Cell Count 6.8 X10^3/uL (4.5-11.0)
[2020-09-20 10:21] LABS: BUN Creatinine Ratio 18.2 (6-22); Blood Urea Nitrogen 71 mg/dL (7-17); Carbon Dioxide 23 mmol/L (22-32); Chloride 105 mmol/L (98-107); Estimated Glomerular Filt Rate 11.5 mL/min (>60); Glucose 97 mg/dL (80-110); HEMOLYSIS < 15 (0-50); Potassium 4.5 mmol/L (3.4-5.1); Sodium 137 mmol/L (137-145)
[2020-09-20 10:27] LABS: HEMOLYSIS < 15 (0-50); Iron 59 ug/dL (37-170)
[2020-09-20 10:38] LABS: Percent Iron Saturation 24 % (15-50); Total Iron Binding Capacity 247 ug/dL (265-497); Transferrin 208 mg/dL (206-381)
[2020-09-20 11:53] LABS: COVID19 -Nasal RAPID Negative (Negative)
== END ==
PROVIDERS: Specialist; PCP Physician Assistant Medical; Referring Provider Physician Assistant Medical; Visit Provider Physician Assistant Medical
DX: Z20.822 Contact with and (suspected) exposure to COVID-19 (principal); D63.1 Anemia in chronic kidney disease; N18.4 Chronic kidney disease, stage 4 (severe)
CPT/HCPCS: 36415; 80048; 83540; 83550; 85025; 87635; C9803

== ENCOUNTER → 2020-09-20 10:53 | Outpatient (CLI) | payer MEDICARE, BC, SELFPAY ==
--- NOTE | 2020-09-20 10:20 | PC.NURSE ---
Addendum entered by Kalyn Quintanilla R.N. 09/20/20 11:06: pt states, I am so tired. I was hoping to get my shot. This Rn called and left message for Elvia to call back and notify her of pt's symptoms. Original Note: Hgb 11.3; aranesp will be held; This RN called Dr. Cerna' office, spoke to Elvia to inform of Hgb.
--- NOTE | 2020-09-20 11:24 | PHA.NOTE ---
Aranesp Injection: Patient is here for Aranesp 60mg SubQ injection every 2 weeks. Today Hgb/Hct = 11.3/34.6 Per MD order to hold Aranesp injection if Hgb above 11. Plan to hold Aranesp dose today. RN notified MD office of the labs result today.
== END ==
PROVIDERS: PCP Physician Assistant Medical; Referring Provider Physician Assistant Medical; Visit Provider Specialist
DX: N18.4 Chronic kidney disease, stage 4 (severe) (principal); D63.1 Anemia in chronic kidney disease

== ENCOUNTER 2020-09-23 09:56 | Day surgery (SDC) | payer MEDICARE, BC, SELFPAY ==
[2020-09-23] VITALS (10 sets, daily range): BP systolic 90–129; BP diastolic 44–71; PULSE 62–74; RESP 10–20; TEMP 36.2–36.5; O2SAT 94–98; BMI 30.2
--- NOTE | 2020-09-23 | PATH_ITS ---
[facility] Accession Number: [id number] . 01 Material submitted: . PART A: gastrointestinal site - PREPYLORIC ANTRUM PART B: body - POLYP @ 50CM . 02 Diagnosis: A. Prepyloric Antrum, Biopsy: Antral mucosa with reactive gastropathy. Negative for Helicobacter by immunohistochemistry. Negative for intestinal metaplasia. Negative for dysplasia and malignancy. . B. Colon, Polyp at 50 cm, Biopsy: Hyperplastic polyp. [facility] 09/28/2020 1525 Local . 02 Electronically signed: . Rosi Pierce MD, Pathologist NPI- [id number] . 01 Gross description: . A. The specimen is received in formalin, labeled prepyloric antrum, and consists of three rodrigues fragments of soft tissue measuring 0.5 x 0.4 x 0.2 cm in aggregate. The specimen is entirely submitted in cassette A1. B. The specimen is received in formalin, labeled polyp at 50 cm, and consists of four rodrigues fragments of soft tissue measuring 0.5 x 0.5 x 0.2 cm in aggregate. The specimen is entirely submitted in cassette B1. ([id number]) /[facility] 09/24/2020 1623 Local . 02 Microscopic: . A. An immunohistochemical stain was performed to evaluate for Helicobacter organisms and is negative. The control stain showed appropriate reactivity. . * This test was developed and its performance characteristics determined by [employer]. It has not been cleared or approved by the U.S. Food and Drug Administration. The FDA has determined that such clearance or approval is not necessary. This test is used for clinical purposes. It should not be regarded as investigational or for research. . 02 Pathologist provided ICD-10: K63.5, Z12.11 . 02 CPT . 032166, [id number], [id number] Performed at: 01 [facility] [address] [id number] MD Erasto Horowitz MD Phone: [phone] Performed at: [facility] [address] [place], [place] [id number] MD Rosi Pierce MD Phone: [phone]
[2020-09-23] MEDS: LACTATED RINGERS 1,000 ML 200 ML IV (10:59)
--- NOTE | 2020-09-23 11:52 | PM.HP.1 ---
History of Present Illness History of Present Illness Date Patient Seen: 09/23/20 Time Patient Seen: 11:53 Chief complaint: SCREENING COLONOSCOPY Narrative: Chief complaint: Diarrhea The patient is a woman who has been having diarrhea for over a year. She is due for screening colonoscopy. Additionally 2 weeks ago she began having black bowel movements. She takes iron supplements but they are injectable and not p.o.. I recommended the she have both an EGD and a colonoscopy. She has been having left upper quadrant pain. Patient History Medical History (Updated 09/23/20 @ 11:55 by Daryn Lowery MD) Anxiety Essential hypertension with goal blood pressure less than 130/85 Renal failure, chronic Family & Social History Social History: household members spouse Tobacco & Substance use: Smoking Status Former smoker alcohol intake current alcohol intake frequency 0-2 drinks per day Substance Use Type does not use Meds Home Medications and Allergies Home Medications Medication Instructions Recorded Confirmed Type albuterol sulfate 90 mcg/actuation 1 inh INHALATION ONCE 08/03/20 09/23/20 History aerosol inhaler allopurinol 100 mg tablet 100 mg PO DAILY 08/03/20 09/23/20 History aspirin 81 mg tablet,delayed 81 mg PO DAILY 08/03/20 09/23/20 History release atorvastatin 40 mg tablet 40 mg PO DAILY 08/03/20 09/23/20 History calcitriol 0.25 mcg capsule 0.25 mcg PO DAILY 08/03/20 09/23/20 History carvedilol 25 mg tablet 25 mg PO BID 08/03/20 09/23/20 History clonidine HCl 0.1 mg tablet 0.05 mg PO BID 08/03/20 09/23/20 History duloxetine 60 mg capsule,delayed 60 mg PO DAILY 08/03/20 09/23/20 History release furosemide 80 mg tablet 80 mg PO DAILY 08/03/20 09/23/20 History gabapentin 600 mg tablet 600 mg PO DAILY 08/03/20 09/23/20 History hydralazine 25 mg tablet 25 mg PO TID 08/03/20 09/23/20 History lorazepam 1 mg tablet 1 mg PO DAILY PRN 08/03/20 09/23/20 History metolazone 5 mg tablet 5 mg PO DAILY 08/03/20 09/23/20 History potassium chloride 20 mEq oral 20 meq PO DAILY 08/03/20 09/23/20 History packet ropinirole 1 mg tablet 1 mg PO DAILY 08/03/20 09/23/20 History sertraline 50 mg tablet 50 mg PO DAILY 08/03/20 09/23/20 History telmisartan 40 mg tablet 40 mg PO DAILY 08/03/20 09/23/20 History tizanidine 4 mg capsule 4 mg PO BEDTIME 08/03/20 09/23/20 History budesonide-formoterol [Symbicort] 2 puff INHALATION BID 09/23/20 09/23/20 History Allergies Allergy/AdvReac Type Severity Reaction Status Date / Time No Known Drug Allergies Allergy Verified 09/23/20 11:10 Review of Systems Review of Systems Narrative: Denies any chest pain. Minimally active so short of breath with exertion. No cough. History of gout. Has had various orthopedic procedures including spine fusion fractured right ankle bunionectomy and hand procedure ROS: Yes All systems reviewed with the patient and are negative except as otherwise documented Exam Vital Signs (past 8 hours): - 09/23/20 10:50 Temperature 97.7 F Pulse Rate 64 Respiratory Rate 20 Blood Pressure 120/69 Pulse Oximetry 98 Oxygen Delivery Method Room Air Narrative Exam Narrative: Pleasant cooperative patient no apparent distress. Lungs are clear to auscultation. No rales or rhonchi. Heart regular rate and rhythm no murmur gallop. Abdomen is soft nontender without mass. No obvious hernias. Patient is alert and oriented x3. Assessment & Plan Assessment & Plan narrative: The patient for a screening colonoscopy and the scope to evaluate her for chronic diarrhea. And because of her history of new onset of melena, will also perform an EGD.. I have discussed the procedure with her. Risks of bleeding, perforation which would necessitate major operation, failure to find remove all lesions, the potential tattoo were all discussed. All questions were answered. They wished to proceed.
[2020-09-23] MEDS: LIDOCAINE 4% SOLN 50 ML 20 ML TOP (12:00)
--- NOTE | 2020-09-23 12:00 | PM.PREOP ---
Pre-operative Note COVID-19 COVID-19 status: Negative Result date/Date tested (Pos, Neg/Pending): 09/22/20 Interval Note History & Physical reviewed/Exam performed by Physician: Yes Changes to H&P: No ASA Class (for procedural sedation): III
[2020-09-23] MEDS: MIDAZOLAM 5 MG/5 ML VIAL IV (12:21)
[2020-09-23] MEDS: fentaNYL 250 MCG/5 ML INJ IV (12:21)
--- NOTE | 2020-09-23 12:32 | PM.OP.ENDO ---
Operative Date/Time/Diagnoses Date of procedure: 09/23/20 Time of procedure: 12:34 Pre-op diagnosis: Melena. Chronic diarrhea. Screening colonoscopy. Post-op diagnosis: same (Gastric and duodenal ulcers. Small colonic lesions removed. Stools spent as specimen) Procedure & Clinicians Study performed: EGD with cold biopsy. Colonoscopy with cold biopsy. Same procedure as scheduled: Yes Indications: Patient with melena. Left upper quadrant pain. Due for screening colonoscopy. Has had diarrhea for over year. Surgeon: Daryn Lowery Procedure Notes SCOAP/Timeout: Performed Procedure in detail: Patient was given topical lidocaine to gargle. She was then Placed left lateral decubitus position underwent IV sedation directed by the surgeon consisting of fentanyl Versed. A bite block was inserted. Scope was advanced under direct vision into the esophagus. The esophagus was normal. GE junction at 40 cm from the incisors. The stomach insufflated well. In the pre-pyloric antrum there were superficial ulcers. I passed through a patent pyloric channel into the duodenal bulb where large ulcer was seen in the distal bulb. There was no visible vessel. Fibrin is exudate line the base. I passed through into the 2nd and 3rd parts of the duodenum which were unremarkable. The scope was brought back into the stomach and retroflexed. The proximal stomach was normal in appearance. There was no evidence of a hiatal hernia. The scope was straightened and biopsies were taken in the gastric antrum. The scope was then removed after sucking out air from the stomach. Patient tolerated this well. The the patient was reposition. She underwent additional IV sedation directed by the surgeon consisting of fentanyl and Versed. Digital exam was unremarkable. The scope was inserted and advanced through the rectum into the sigmoid, descending, transverse, and ascending colon. The patient had occasional diverticuli in the sigmoid.. The cecum was reached identified by the ileocecal valve and the appendiceal opening. The ileocecal valve was not able to be cannulated despite multiple attempts to do so. The scope was gradually brought out. Tiny flat lesions were found at 40 cm from the anal verge. There were all biopsied and removed. No other lesions Were found. The scope ultimately attempted to be retroflexed in the rectum. I was unable to successfully do so therefore I brought the scope slowly through the anus. The appearance was normal. The scope was removed and the patient tolerated the procedure well. Prep was very good. Stool was collected for specimen as well. Scope withdrawal time: 6 minutes (8.5 total) Sedation minutes: 27 Findings: diverticulosis, duodenal ulcer, gastric ulcer and polyp (Possible small flat polyps) Specimen(s): other (Gastric biopsies and colon biopsies sent) Complications: none Post-procedure Recommendations: Start medication(s) (For treatment of ulcers) Follow up: months (1) Disposition: PACU
--- NOTE | 2020-09-23 12:47 | SUR.PHASEI ---
Pt very sleepy, on room air. No c/o pain or discomfort.
--- NOTE | 2020-09-23 13:29 | SUR.PHASEII ---
pt given discharge instructions. Pt's given discharge instructions. Dr. Davila came and talked to pt and he also talked to pt's . pt denies pain and nausea. Pt to be discharged with .
[2020-09-23 14:34] LABS: Adenovirus F 40/41 Not Detected (Not Detect); Astrovirus Not Detected (Not Detect); Campylobacter Not Detected (Not Detect); Clostridium difficile toxin AB Not Detected (Not Detect); Cryptosporidium Not Detected (Not Detect); Cyclospora cayetanensis Not Detected (Not Detect); Entamoeba histolytica Not Detected (Not Detect); Enteroaggregative E.coli Not Detected (Not Detect); Enteropathogenic E.coli Not Detected (Not Detect); Enterotoxigenic E.coli It/st Not Detected (Not Detect); Giardia lamblia Not Detected (Not Detect); Norovirus GI/GII Not Detected (Not Detect); Plesiomonsa shigelloides Not Detected (Not Detect); Rotavirus A Not Detected (Not Detect); Salmonella Not Detected (Not Detect); Sapovirus Not Detected (Not Detect); Shiga-like toxin-prod E.coli Not Detected (Not Detect); Shigella/Enteroinvasive E.coli Not Detected (Not Detect); Vibrio Not Detected (Not Detect); Vibrio cholerae Not Detected (Not Detect); Yersinia enterocolitica Not Detected (Not Detect)
== END 2020-09-23 13:34 | disposition home or self-care (01) ==
PROVIDERS: PCP Physician Assistant Medical; Referring Provider Physician Assistant Medical; Visit Provider Specialist
PROC: 0DJD8ZZ Inspection of Lower Intestinal Tract, Via Natural or Artificial Opening Endoscopic (ICD-10-PCS; CPT 45378; principal; 2020-09-23 11:30)
PROC: 0DJ08ZZ Inspection of Upper Intestinal Tract, Via Natural or Artificial Opening Endoscopic (ICD-10-PCS; CPT 43235; 2020-09-23 11:30)
DX: K92.1 Melena (principal); R10.12 Left upper quadrant pain; K52.9 Noninfective gastroenteritis and colitis, unspecified; F41.9 Anxiety disorder, unspecified; I10 Essential (primary) hypertension; K57.30 Diverticulosis of large intestine without perforation or abscess without bleeding; K26.9 Duodenal ulcer, unspecified as acute or chronic, without hemorrhage or perforation; K25.9 Gastric ulcer, unspecified as acute or chronic, without hemorrhage or perforation; K63.5 Polyp of colon
CPT/HCPCS: 45380; 43239; 87507; 99152; 99153; J2250; J3010

== ENCOUNTER → 2020-11-10 12:56 | Outpatient (CLI) | payer MEDICARE, BC, SELFPAY ==
[2020-11-10 13:15] LABS: Add Manual Diff / Slide Review NO; Basophils Absolute Auto 100 /uL (0-100); Basophils Percent Auto 2.5 % (0-2); Eosinophils Absolute Auto 500 /uL (0-450); Eosinophils Percent Auto 9.9 % (2-4); Hematocrit 28.4 % (36-46); Hemoglobin 9.3 g/dL (12.0-16.0); Lymphocytes Absolute Auto 1200 /uL (1100-4500); Lymphocytes Percent Auto 22.7 % (25-40); Mean Corpuscular HGB Conc 32.7 % (30-36); Mean Corpuscular Hemoglobin 33.1 PG (26-34); Mean Corpuscular Volume 101.2 fL (80-100); Monocytes Absolute Auto 500 /uL (0-900); Monocytes Percent Auto 8.6 % (3-14); Neutrophils Absolute Auto 3100 /uL (1500-7000); Neutrophils Percent Auto 56.3 % (50-75); Platelet Count 218 X10^3/uL (150-400); Red Cell Distribution Width 13.7 % (11.6-14.8); White Blood Cell Count 5.5 X10^3/uL (4.5-11.0)
[2020-11-10 13:34] LABS: Blood Urea Nitrogen 73 mg/dL (7-17); Calcium 10.4 mg/dL (8.4-10.2); Carbon Dioxide 24 mmol/L (22-32); Chloride 106 mmol/L (98-107); Estimated Glomerular Filt Rate 10.4 mL/min (>60); Glucose 106 mg/dL (80-110); HEMOLYSIS < 15 (0-50); Potassium 4.4 mmol/L (3.4-5.1); Sodium 140 mmol/L (137-145)
[2020-11-10 13:35] LABS: HEMOLYSIS < 15 (0-50); Iron 84 ug/dL (37-170)
[2020-11-10 13:49] LABS: Percent Iron Saturation 34 % (15-50); Total Iron Binding Capacity 249 ug/dL (265-497); Transferrin 203 mg/dL (206-381)
== END ==
PROVIDERS: PCP Physician Assistant Medical; Referring Provider Physician Assistant Medical; Visit Provider Physician Assistant Medical
DX: I10 Essential (primary) hypertension (principal); D63.1 Anemia in chronic kidney disease
CPT/HCPCS: 36415; 80048; 83540; 83550; 85025

== ENCOUNTER → 2020-11-10 14:19 | Outpatient (CLI) | payer MEDICARE, BC, SELFPAY ==
[2020-11-10 14:43] VITALS: BP 119/61; PULSE 74; RESP 18; TEMP 36.8; O2SAT 94
--- NOTE | 2020-11-10 15:00 | PC.NURSE ---
ARANESP/EPO INJECTION WEEKLY Discussed with Pt that she will be getting Aranesp today that will last 2 weeks. After this injection she will be getting epo and will need to come in weekly for labs/injection. Pt verbalized understanding.
[2020-11-10] MEDS: DARBEPOETIN 60 MCG/0.3 ML SYRINGE SUBCUT (15:17)
--- NOTE | 2020-11-10 15:42 | ONC.PHA ---
Aranesp Injection: Patient is here for Aranesp 60mcg SubQ injection every [address].O. (rb) Dr. Landry Mattson ([phone])MD covering for Dr. Cerna, ok?d to give Aranesp 60mcg x 1 dose today, then switch patient to EPO 10,000 units weekly as order written by Dr. Cerna on 09/07/2020. Per RN, patient reported that shehas not received Aranesp or EPO injection since her last visit on 09/20/2020. Patient was instructed to come back in 2 weeks to start EPO injection weekly per order written by Dr. Cerna on 09/07/2020. Contacted Dr. Cerna?s office ([phone]) and spoke to CLIFFORD Chun, notified MD office that patient missed her injections since her last visit on 09/20/2020. Today Hgb/Hct = 9.3/28.4 BP: 119/61 Plan to give Aranesp dose as ordered today. Vital Signs Temperature 98.3 F Pulse Rate 74 Respiratory Rate 18 Blood Pressure 119/61 Pulse Oximetry 94 Weight 66.8 kg Allergies Allergy/AdvReac Type Severity Reaction Status Date / Time No Known Drug Allergies Allergy Verified 09/23/20 11:10
== END ==
PROVIDERS: PCP Physician Assistant Medical; Referring Provider Specialist; Visit Provider Specialist
DX: N18.4 Chronic kidney disease, stage 4 (severe) (principal); D63.1 Anemia in chronic kidney disease
CPT/HCPCS: 96372; J0881

== ENCOUNTER → 2020-11-24 13:23 | Outpatient (CLI) | payer MEDICARE, BC, SELFPAY ==
[2020-11-24 13:55] LABS: Add Manual Diff / Slide Review NO; Basophils Absolute Auto 100 /uL (0-100); Basophils Percent Auto 1.5 % (0-2); Eosinophils Absolute Auto 500 /uL (0-450); Eosinophils Percent Auto 7.8 % (2-4); Hematocrit 30.3 % (36-46); Hemoglobin 10.1 g/dL (12.0-16.0); Lymphocytes Absolute Auto 1000 /uL (1100-4500); Lymphocytes Percent Auto 15.4 % (25-40); Mean Corpuscular HGB Conc 33.3 % (30-36); Mean Corpuscular Hemoglobin 33.8 PG (26-34); Mean Corpuscular Volume 101.3 fL (80-100); Monocytes Absolute Auto 500 /uL (0-900); Monocytes Percent Auto 7.8 % (3-14); Neutrophils Absolute Auto 4200 /uL (1500-7000); Neutrophils Percent Auto 67.5 % (50-75); Platelet Count 225 X10^3/uL (150-400); Red Blood Cell Count 2.99 X10^6/uL (4.0-5.2); Red Cell Distribution Width 15.1 % (11.6-14.8); White Blood Cell Count 6.3 X10^3/uL (4.5-11.0)
[2020-11-24 14:13] LABS: Blood Urea Nitrogen 76 mg/dL (7-17); Calcium 10.4 mg/dL (8.4-10.2); Carbon Dioxide 20 mmol/L (22-32); Chloride 106 mmol/L (98-107); Estimated Glomerular Filt Rate 9.9 mL/min (>60); Glucose 94 mg/dL (80-110); HEMOLYSIS < 15 (0-50); Sodium 138 mmol/L (137-145)
[2020-11-24 14:43] LABS: HEMOLYSIS < 15 (0-50); Iron 80 ug/dL (37-170)
[2020-11-24 14:54] LABS: Percent Iron Saturation 32 % (15-50); Total Iron Binding Capacity 251 ug/dL (265-497); Transferrin 229 mg/dL (206-381)
== END ==
PROVIDERS: PCP Physician Assistant Medical; Referring Provider Physician Assistant Medical; Visit Provider Physician Assistant Medical
DX: D63.1 Anemia in chronic kidney disease (principal); N18.4 Chronic kidney disease, stage 4 (severe)
CPT/HCPCS: 36415; 80048; 83540; 83550; 85025

== ENCOUNTER → 2020-11-24 13:57 | Outpatient (CLI) | payer MEDICARE, BC, SELFPAY ==
[2020-11-24 14:31] VITALS: BP 133/76; PULSE 76; RESP 15; TEMP 36.8; O2SAT 96
[2020-11-24] MEDS: EPOETIN ALFA 10,000 UNIT/ML VIAL 10000 UNIT SUBCUT (14:39)
--- NOTE | 2020-11-24 18:07 | ONC.PHA ---
EPO Injection: Patient is here for EPO 10,000 units SubQ injection weekly per order written by Dr. Phoenix Cerna on 09/07/2020. Patient is now transition to EPO injection from Aranesp. Last Aranesp 60mcg was given on 11/10/2020. Today Hgb/Hct = 10.1/30.3, BP = 133/76 Plan to give today EPO dose as written. Vital Signs Temperature 98.2 F Pulse Rate 76 Respiratory Rate 15 Blood Pressure 133/76 Pulse Oximetry 96 Weight 66.5 kg Allergies Allergy/AdvReac Type Severity Reaction Status Date / Time No Known Drug Allergies Allergy Verified 09/23/20 11:10
== END ==
PROVIDERS: PCP Physician Assistant Medical; Referring Provider Specialist; Visit Provider Specialist
DX: N18.4 Chronic kidney disease, stage 4 (severe) (principal); D63.1 Anemia in chronic kidney disease
CPT/HCPCS: 36415; 80048; 83540; 83550; 85025; 96372; J0885

== ENCOUNTER → 2020-11-30 10:12 | Outpatient (CLI) | payer MEDICARE, BC, SELFPAY ==
[2020-11-30 12:00] LABS: Add Manual Diff / Slide Review NO; Basophils Absolute Auto 100 /uL (0-100); Basophils Percent Auto 1.9 % (0-2); Eosinophils Absolute Auto 500 /uL (0-450); Eosinophils Percent Auto 8.3 % (2-4); Hematocrit 32.7 % (36-46); Hemoglobin 10.6 g/dL (12.0-16.0); Lymphocytes Absolute Auto 1100 /uL (1100-4500); Lymphocytes Percent Auto 20.4 % (25-40); Mean Corpuscular HGB Conc 32.4 % (30-36); Mean Corpuscular Hemoglobin 33.5 PG (26-34); Mean Corpuscular Volume 103.6 fL (80-100); Monocytes Absolute Auto 400 /uL (0-900); Monocytes Percent Auto 7.9 % (3-14); Neutrophils Absolute Auto 3400 /uL (1500-7000); Neutrophils Percent Auto 61.5 % (50-75); Platelet Count 224 X10^3/uL (150-400); Red Blood Cell Count 3.16 X10^6/uL (4.0-5.2); Red Cell Distribution Width 15.3 % (11.6-14.8); White Blood Cell Count 5.6 X10^3/uL (4.5-11.0)
[2020-11-30 12:04] LABS: HEMOLYSIS < 15 (0-50)
[2020-11-30 12:09] LABS: HEMOLYSIS < 15 (0-50); Iron 80 ug/dL (37-170)
[2020-11-30 12:11] LABS: Blood Urea Nitrogen 60 mg/dL (7-17); Calcium 10.3 mg/dL (8.4-10.2); Carbon Dioxide 22 mmol/L (22-32); Chloride 105 mmol/L (98-107); Estimated Glomerular Filt Rate 11.3 mL/min (>60); Glucose 93 mg/dL (80-110); Potassium 3.8 mmol/L (3.4-5.1); Sodium 138 mmol/L (137-145)
[2020-11-30 12:21] LABS: Percent Iron Saturation 32 % (15-50); Total Iron Binding Capacity 247 ug/dL (265-497); Transferrin 219 mg/dL (206-381)
[2020-11-30 13:15] LABS: Folate 6.7 ng/mL (2.76-20.0); Vitamin B12 523 pg/mL (239-931)
== END ==
PROVIDERS: PCP Physician Assistant Medical; Referring Provider Physician Assistant Medical; Visit Provider Physician Assistant Medical
DX: D63.1 Anemia in chronic kidney disease (principal); N18.4 Chronic kidney disease, stage 4 (severe)
CPT/HCPCS: 36415; 80048; 82607; 82746; 83540; 83550; 85025

== ENCOUNTER → 2020-11-30 12:28 | Outpatient (CLI) | payer MEDICARE, BC, SELFPAY ==
[2020-11-30 12:37] VITALS: BP 132/74; PULSE 62; RESP 16; O2SAT 97
[2020-11-30] MEDS: EPOETIN ALFA 10,000 UNIT/ML VIAL 10000 UNIT SUBCUT (12:57)
--- NOTE | 2020-11-30 17:20 | ONC.PHA ---
EPO Injection: Patient is here for EPO 10,000 units SubQ injection weekly per order written by Dr. Phoenix Cerna on 09/07/2020. Today Hgb/Hct = 10.6/32.7, BP = 132/74 Plan to give today EPO dose as written. Vital Signs Pulse Rate 62 Respiratory Rate 16 Blood Pressure 132/74 Pulse Oximetry 97 Weight 66.1 kg Allergies Allergy/AdvReac Type Severity Reaction Status Date / Time No Known Drug Allergies Allergy Verified 09/23/20 11:10
== END ==
PROVIDERS: PCP Physician Assistant Medical; Referring Provider Physician Assistant Medical; Visit Provider Specialist
DX: N18.5 Chronic kidney disease, stage 5; D63.1 Anemia in chronic kidney disease
CPT/HCPCS: 36415; 80048; 82607; 82746; 83540; 83550; 85025; 96372; J0885

== ENCOUNTER → 2020-12-08 12:57 | Outpatient (CLI) | payer MEDICARE, BC, SELFPAY ==
[2020-12-08 13:13] LABS: Add Manual Diff / Slide Review NO; Basophils Absolute Auto 100 /uL (0-100); Basophils Percent Auto 1.3 % (0-2); Eosinophils Absolute Auto 500 /uL (0-450); Eosinophils Percent Auto 8.2 % (2-4); Hematocrit 33.4 % (36-46); Hemoglobin 11.1 g/dL (12.0-16.0); Lymphocytes Absolute Auto 900 /uL (1100-4500); Lymphocytes Percent Auto 16.2 % (25-40); Mean Corpuscular HGB Conc 33.2 % (30-36); Mean Corpuscular Hemoglobin 34.4 PG (26-34); Mean Corpuscular Volume 103.4 fL (80-100); Monocytes Absolute Auto 400 /uL (0-900); Neutrophils Absolute Auto 3700 /uL (1500-7000); Neutrophils Percent Auto 66.3 % (50-75); Platelet Count 223 X10^3/uL (150-400); Red Blood Cell Count 3.23 X10^6/uL (4.0-5.2); Red Cell Distribution Width 16.1 % (11.6-14.8); White Blood Cell Count 5.5 X10^3/uL (4.5-11.0)
[2020-12-08 13:30] LABS: BUN Creatinine Ratio 17.2 (6-22); Blood Urea Nitrogen 62 mg/dL (7-17); Calcium 10.3 mg/dL (8.4-10.2); Carbon Dioxide 21 mmol/L (22-32); Chloride 107 mmol/L (98-107); Estimated Glomerular Filt Rate 12.6 mL/min (>60); Glucose 116 mg/dL (80-110); HEMOLYSIS < 15 (0-50); Potassium 3.7 mmol/L (3.4-5.1); Sodium 139 mmol/L (137-145)
[2020-12-08 13:33] LABS: HEMOLYSIS < 15 (0-50); Iron 84 ug/dL (37-170)
[2020-12-08 13:43] LABS: Percent Iron Saturation 32 % (15-50); Total Iron Binding Capacity 260 ug/dL (265-497); Transferrin 239 mg/dL (206-381)
== END ==
PROVIDERS: PCP Physician Assistant Medical; Referring Provider Physician Assistant Medical; Visit Provider Physician Assistant Medical
DX: N18.9 Chronic kidney disease, unspecified (principal); D63.1 Anemia in chronic kidney disease
CPT/HCPCS: 36415; 80048; 83540; 83550; 85025

== ENCOUNTER → 2020-12-12 14:12 | Outpatient (CLI) | payer MEDICARE, BC, SELFPAY ==
--- NOTE | 2020-12-12 | DI.MG.S_ITS ---
BILATERAL DIGITAL SCREENING MAMMOGRAM 3D/2D WITH CAD: 12/12/2020 CLINICAL: Routine screening. Comparison is made to exams dated: 08/30/2015 mammogram, 05/17/2011 mammogram, and 03/31/2010 mammogram - outside location. The tissue of both breasts is heterogeneously dense. This may lower the sensitivity of mammography. Current study was also evaluated with a Computer Aided Detection (CAD) system. No significant masses, calcifications, or other findings are seen in either breast. There has been no significant interval change. IMPRESSION: NEGATIVE There is no mammographic evidence of malignancy. A 1 year screening mammogram is recommended. This exam was interpreted at Station ID: [id number]. NOTE: For mammograms, a report in lay terms will be sent to the patient. Approximately 15% of breast malignancies will not be visualized mammographically. In the management of a palpable breast mass, a negative mammogram must not discourage biopsy of a clinically suspicious lesion. Electronically Signed By: Linwood cifuentes/liam:12/12/2020 16:49:30 letter sent: Normal Exam ACR BI-RADS Category 1: Negative [id number]
== END ==
PROVIDERS: PCP Physician Assistant Medical; Referring Provider Physician Assistant Medical; Visit Provider Physician Assistant Medical
DX: Z12.31 Encounter for screening mammogram for malignant neoplasm of breast (principal)
CPT/HCPCS: 77063; 77067

== ENCOUNTER → 2020-12-15 08:47 | Outpatient (CLI) | payer MEDICARE, BC, SELFPAY ==
[2020-12-15 11:17] LABS: COVID19 -Nasal RAPID Negative (Negative)
== END ==
PROVIDERS: PCP Physician Assistant Medical; Visit Provider Specialist
DX: Z01.812 Encounter for preprocedural laboratory examination (principal); Z20.822 Contact with and (suspected) exposure to COVID-19
CPT/HCPCS: 87635; C9803

== ENCOUNTER 2020-12-16 10:17 | Day surgery (SDC) | payer MEDICARE, BC, SELFPAY ==
[2020-12-16] VITALS (7 sets, daily range): BP systolic 104–146; BP diastolic 46–86; PULSE 61–75; RESP 9–18; TEMP 36.4–36.6; O2SAT 93–98; BMI 29.5
[2020-12-16] MEDS: LACTATED RINGERS 1,000 ML 200 ML IV (10:59)
--- NOTE | 2020-12-16 11:24 | PM.PREOP ---
Pre-operative Note COVID-19 COVID-19 status: Negative Result date/Date tested (Pos, Neg/Pending): 12/15/20 Interval Note History & Physical reviewed/Exam performed by Physician: Yes Changes to H&P: No ASA Class (for procedural sedation): II
--- NOTE | 2020-12-16 11:46 | PM.HP.1 ---
History of Present Illness History of Present Illness Chief complaint: EGD Narrative: The patient is a woman with a large duodenal and pre-pyloric ulcers. She has been treated and is brought back to evaluate her healing. She has been taking double dose proton pump inhibitor. She has not had black bowel movements since her treatment was begun in September. Patient History Medical History Anxiety Essential hypertension with goal blood pressure less than 130/85 Renal failure, chronic Family & Social History Social History: household members spouse Tobacco & Substance use: Smoking Status Former smoker alcohol intake current alcohol intake frequency 0-2 drinks per day Substance Use Type does not use Meds Home Medications and Allergies Home Medications Medication Instructions Recorded Confirmed Type albuterol sulfate 90 mcg/actuation 1 inh INHALATION ONCE 08/03/20 12/16/20 History aerosol inhaler allopurinol 100 mg tablet 100 mg PO DAILY 08/03/20 12/16/20 History aspirin 81 mg tablet,delayed 81 mg PO DAILY 08/03/20 12/16/20 History release (Adult Aspirin Regimen) atorvastatin 40 mg tablet 40 mg PO DAILY 08/03/20 12/16/20 History carvedilol 25 mg tablet 25 mg PO BID 08/03/20 09/23/20 History clonidine HCl 0.1 mg tablet 0.05 mg PO BID 08/03/20 12/16/20 History duloxetine 60 mg capsule,delayed 60 mg PO DAILY 08/03/20 12/16/20 History release furosemide 80 mg tablet 80 mg PO DAILY 08/03/20 12/16/20 History gabapentin 600 mg tablet 600 mg PO DAILY 08/03/20 09/23/20 History hydralazine 25 mg tablet 25 mg PO TID 08/03/20 12/16/20 History lorazepam 1 mg tablet 1 mg PO DAILY PRN 08/03/20 09/23/20 History metolazone 5 mg tablet 5 mg PO DAILY 08/03/20 09/23/20 History potassium chloride 20 mEq oral 20 meq PO DAILY 08/03/20 09/23/20 History packet ropinirole 1 mg tablet 1 mg PO DAILY 08/03/20 09/23/20 History sertraline 50 mg tablet 50 mg PO DAILY 08/03/20 09/23/20 History telmisartan 40 mg tablet 40 mg PO DAILY 08/03/20 09/23/20 History tizanidine 4 mg capsule 4 mg PO BEDTIME 08/03/20 09/23/20 History budesonide-formoterol HFA 160 2 puff INHALATION BID 09/23/20 12/16/20 History mcg-4.5 mcg/actuation aerosol inhaler (Symbicort) omeprazole 20 mg capsule,delayed See Rx Instructions .ROUTE 09/23/20 Rx release .COMPLEX #180 cap Allergies Allergy/AdvReac Type Severity Reaction Status Date / Time No Known Drug Allergies Allergy Verified 12/16/20 10:50 Review of Systems Review of Systems Narrative: History of renal failure with a left arm fistula. No chest pain or heart problems. Does have hypertension. Is on multiple medications for the same. No breathing issues at this time though she does use 2 inhalers which she took this morning. No abdominal pain. Exam Vital Signs (past 8 hours): - 12/16/20 10:54 Temperature 98 F Pulse Rate 75 Respiratory Rate 18 Blood Pressure 146/86 H Pulse Oximetry 98 Oxygen Delivery Method Room Air Narrative Exam Narrative: Lungs are clear. Heart regular rate and rhythm. Abdomen is soft nontender without mass. Assessment & Plan Assessment & Plan narrative: Patient with a history of gastric and duodenal ulcers. She is brought in for repeat scope to confirm healing. I have discussed the procedure with her. Bleeding perforation discussed. She appears to understand wishes to proceed. Time Spent With Patient Critical Care time: I spent a total of [] minutes of critical care time on this patient's care today; this time is exclusive of procedural time.
[2020-12-16] MEDS: LIDOCAINE 4% SOLN 50 ML 20 ML TOP (12:08)
[2020-12-16] MEDS: fentaNYL 250 MCG/5 ML INJ IV (12:09)
[2020-12-16] MEDS: MIDAZOLAM 5 MG/5 ML VIAL IV (12:09)
--- NOTE | 2020-12-16 12:13 | PM.OP.ENDO ---
Operative Date/Time/Diagnoses Date of procedure: 12/16/20 Time of procedure: 12:13 Pre-op diagnosis: History of peptic ulcer disease. Post-op diagnosis: same (Ulcers appear to have been healed.) Procedure & Clinicians Study performed: EGD Same procedure as scheduled: Yes Indications: Patient with a history of melena and pre-pyloric and duodenal ulcers brought for re-evaluation to confirm healing Surgeon: Daryn Lowery Procedure Notes SCOAP/Timeout: Performed Procedure in detail: The patient had topical anesthetic applied to oropharynx. She was placed in the left lateral decubitus position and underwent IV sedation directed by the surgeon consisting of fentanyl and Versed. A bite block was inserted and the scope was advanced through it into the esophagus. The esophagus was unremarkable. GE junction was noted at 40 cm from the incisors The stomach insufflated well. There were no lesions seen in the body, antrum or at the incisura. Pre-pyloric ulcers appear to have healed. pyloric channel was widely patent. The duodenum was remarkable to the 4th part for evidence of a healed ulcer in the distal bulb. Scope was brought back into the stomach and retroflexed. The proximal stomach normal in appearance. The scope was straightened and brought out through the esophagus again. No lesions were seen. The scope was removed and the patient tolerated the procedure well. Scope withdrawal time: Not applicable Sedation minutes: 11 Complications: none Post-procedure Recommendations: Other recommendation (Reduce the amount of omeprazole you take to once a day. Follow-up with your primary care doctor.) Follow up: as needed Disposition: PACU
--- NOTE | 2020-12-16 12:16 | SUR.PHASEI ---
Pt arrived, 02 on room air 87, placed on 2/l nasal cannula.
--- NOTE | 2020-12-16 14:05 | SUR.PHASEII ---
Late entry: pt gradually more awake, assisted to dress when ready to go, left unit in stable condition, d/c instructions discussed with at his car.
== END 2020-12-16 13:10 | disposition home or self-care (01) ==
PROVIDERS: PCP Physician Assistant Medical; Referring Provider Specialist; Visit Provider Specialist
PROC: 0DJ08ZZ Inspection of Upper Intestinal Tract, Via Natural or Artificial Opening Endoscopic (ICD-10-PCS; CPT 43235; principal; 2020-12-16 11:30)
DX: Z87.11 Personal history of peptic ulcer disease (principal); I10 Essential (primary) hypertension; F41.9 Anxiety disorder, unspecified; N18.9 Chronic kidney disease, unspecified
CPT/HCPCS: 43235; 99152; J2250; J3010

== ENCOUNTER → 2021-03-04 14:00 | Outpatient (CLI) | payer MEDICARE, BC, SELFPAY ==
--- NOTE | 2021-03-04 14:02 | DI.MRI.S_ITS ---
PROCEDURE: MR LUMBAR SPINE WO CON INDICATIONS: Low back pain, unspecified TECHNIQUE: Noncontrast sagittal T1 spin echo and T2 fast echo, coronal T2, sagittal STIR, axial T1 and T2 fast spin echo through the lumbar spine. COMPARISON: [facility], , MR LUMBAR SPINE WO CON, 02/07/2018, 12:41. FINDINGS: Image quality: Partially degraded by metallic artifact. Alignment and Curvature: 5 lumbar type vertebral bodies are present by plain film. There is moderate leftward curvature of the mid lumbar spine. Mild grade 1 retrolisthesis of L1 on L2. Bone Marrow: Marrow is of normal overall signal. No acute vertebral body compression fractures. Posterior fusion hardware at L2-S1 has been performed. There is increased, moderate to severe ill-defined T2 signal elevation within the L1 vertebral body. Increased, moderate reactive signal within the L2 vertebral body. Spinal Cord: Conus medullaris terminates at the L1-L2 disc space level. Visualized cord demonstrates normal signal and size. Paraspinous Soft Tissues: No paravertebral masses. There is possible ill-defined STIR signal elevation within the paraspinous soft tissues at L1-L2, left greater than right. T12-L1: Moderate disc height loss and desiccation. Mild diffuse disc bulge with superimposed left paracentral disc protrusion, new since the prior examination. Mild facet and ligamentum flavum hypertrophy. Mild epidural lipomatosis. Increased, mild to moderate canal stenosis. No change in mild bilateral foraminal stenosis. Compression and posterior deviation of the left L1 nerve root, new since the prior examination. L1-L2: There is new, moderate STIR signal elevation within the intervertebral disc. There is severe disc height loss and desiccation. Moderate diffuse disc bulge. Moderate epidural lipomatosis. Mild facet hypertrophy bilaterally. Increased, severe canal stenosis. Increased, mild bilateral foraminal stenosis. L2-L3: Status post fusion. Mild residual disc bulge/osteophyte. Mild bilateral facet hypertrophy. Mild epidural lipomatosis. Decreased, mild canal stenosis. Decreased, mild bilateral foraminal stenosis. L3-L4: Status post fusion. Mild residual disc bulge. Mild bilateral facet hypertrophy. Mild epidural lipomatosis. Decreased, mild canal stenosis. Decreased, moderate bilateral foraminal stenosis. L4-L5: Status post fusion. Mild residual disc bulge/osteophyte. Mild facet and ligamentum flavum hypertrophy. Decreased, moderate canal stenosis. Decreased, moderate bilateral foraminal stenosis. L5-S1: Status post fusion. Mild residual disc bulge. Mild bilateral facet hypertrophy. Decreased, mild canal stenosis. Decreased, mild bilateral foraminal stenosis. IMPRESSION: 1. Postsurgical sequelae. 2. Multilevel degenerative disc and facet disease, as well as ligamentum flavum hypertrophy and epidural lipomatosis. 3. Multilevel canal stenoses, worst at L1-L2, where there is increased, severe canal stenosis, above the fused levels. 4. New T12-L1 disc protrusion, causing increased canal stenosis as well as left L1 nerve root compression. Recommend correlation with clinical symptoms to ascertain relevance of this finding. 5. New STIR signal elevation within the L1-L2 intervertebral disc, the adjacent L1-L2 marrow space, as well as possibly also within the adjacent paraspinous soft tissues. These findings would be consistent with discitis/osteomyelitis in the appropriate clinical setting. Discogenic sequelae could also produce these findings. Clinical/laboratory correlation recommended. Dictated by: Jie Powell M.D. on 03/06/2021 at 8:33 Approved by: Jie Powell M.D. on 03/06/2021 at 8:45
== END ==
PROVIDERS: PCP Physician Assistant Medical; Referring Provider Physician Assistant Medical; Visit Provider Physician Assistant Medical
DX: M51.36 Other intervertebral disc degeneration, lumbar region (principal); M51.37 Other intervertebral disc degeneration, lumbosacral region; M48.061 Spinal stenosis, lumbar region without neurogenic claudication; M48.07 Spinal stenosis, lumbosacral region; Z98.1 Arthrodesis status
CPT/HCPCS: 72148

== ENCOUNTER → 2021-04-05 09:04 | Outpatient (CLI) | payer MEDICARE, BC, SELFPAY ==
--- NOTE | 2021-04-05 | DI.CT.S_ITS ---
PROCEDURE: CT PEL WO CON INDICATIONS: Low back pain, unspecified TECHNIQUE: Noncontrast 3 mm axial sections acquired through the bony pelvis, with coronal and sagittal reformatting. COMPARISON: [facility], MR, MR LUMBAR SPINE WO CON, 03/04/2021, 14:34. [facility], CT, CT ABDOMEN PELVIS WO CON, 08/02/2020, 11:24. FINDINGS: Image quality: Excellent. Bones: There has been discectomy and fusion lower lumbar spine with posterior simba and screw instrumentation throughout the exam. The left L4 pedicle screw is slightly medialized and traverses the spinal canal left lateral recess. Remainder of the instrumentation is in good position. No evidence of hardware failure. Osseous pelvis intact. Both hips show mild joint space narrowing and subchondral sclerosis. Soft tissues: Atherosclerotic calcification in the abdominal aorta noted without evidence of aneurysm. Renal medullary calcinosis noted. IMPRESSION: 1. Osseous pelvis intact without fracture or lytic lesion. Mild bilateral hip osteoarthritis. 2. Left L4 pedicle screw traverses the left lateral recess. Correlate with left L4 radiculopathy 3. Stable renal medullary nephrocalcinosis and aortic atherosclerosis without aneurysm Approved by: Gunnar Hayden M.D. on 04/05/2021 at 11:13
== END ==
PROVIDERS: PCP Physician Assistant Medical; Referring Provider Neurological Surgery; Visit Provider Neurological Surgery
DX: M16.0 Bilateral primary osteoarthritis of hip (principal); N18.6 End stage renal disease; E83.59 Other disorders of calcium metabolism; N29 Other disorders of kidney and ureter in diseases classified elsewhere; I70.0 Atherosclerosis of aorta; M54.50 Low back pain, unspecified; Z98.1 Arthrodesis status
CPT/HCPCS: 36415; 72192

== ENCOUNTER → 2021-10-03 12:56 | Outpatient (CLI) | payer MEDICARE, BC, SELFPAY ==
--- NOTE | 2021-10-03 | DI.CT.S_ITS ---
PROCEDURE: CT LUNG LOW DOSE SCREENING INDICATIONS: Encounter for screening for malignant neoplasm of respirator TECHNIQUE: Noncontrast 2.0-2.5 mm thick sections acquired from the pulmonary apices to the posterior costophrenic angles. 7 mm thick axial MIP, and 5 mm coronal and sagittal reformats were then acquired. A low radiation dose technique was utilized. COMPARISON: [facility], CT, CT CHEST WO CON, 05/26/2018, 12:22. FINDINGS: Image quality: Diagnostic, given the low radiation dose technique. There is artifact associated with the metallic hardware. Lungs and pleura: No suspicious pulmonary nodules are seen. No focal infiltrates are seen. No pneumothorax or pleural effusions are seen. The central airways are patent. Mediastinum: Heart size is normal. No pericardial effusion. No mediastinal adenopathy by size criteria. Thoracic aorta and central pulmonary arteries are normal in size. Atherosclerotic calcification is noted. Esophagus is normal in caliber. No hiatal hernia. Bones and chest wall: No suspicious bony lesions. No vertebral body compression fractures. Pectus excavatum deformity can be seen. Lumbar spine fixation hardware is partially seen. No axillary or supraclavicular adenopathy by size criteria. Thyroid gland demonstrates post lead projected elements seen posterior to the esophagus, as demonstrated on series 2, image 7. Abdomen: Visualized upper abdomen solid organs and bowel loops appear normal in the absence of contrast. IMPRESSION: There are no suspicious pulmonary nodules. Incidental note is made of: Pectus excavatum deformity Posteriorly projected elements involving the thyroid gland. Lumbar spine fixation hardware LUNG-RADS 1; Recommend annual screening for lung cancer with low dose CT, as long as the patient meets the screening criteria. Dictated by: Toan Gotti M.D. on 10/03/2021 at 12:44 Approved by: Toan Gotti M.D. on 10/03/2021 at 12:47
== END ==
PROVIDERS: PCP Physician Assistant Medical; Referring Provider Internal Medicine; Visit Provider Internal Medicine
DX: Z12.2 Encounter for screening for malignant neoplasm of respiratory organs (principal)
CPT/HCPCS: 71250

== ENCOUNTER → 2022-04-12 15:56 | Outpatient (CLI) | payer MEDICARE, BC, SELFPAY ==
[2022-04-12 18:15] LABS: Add Manual Diff / Slide Review YES; Hematocrit 34.5 % (36-46); Hemoglobin 11.8 g/dL (12.0-16.0); Mean Corpuscular HGB Conc 34.3 % (30-36); Mean Corpuscular Hemoglobin 32.5 PG (26-34); Mean Corpuscular Volume 94.8 fL (80-100); Platelet Count 212 X10^3/uL (150-400); Red Blood Cell Count 3.64 X10^6/uL (4.0-5.2); Red Cell Distribution Width 15.2 % (11.6-14.8); White Blood Cell Count 4.2 X10^3/uL (4.5-11.0)
[2022-04-12 18:16] LABS: Alanine Aminotransferase 25 IU/L (<35); Albumin 4.4 g/dL (3.5-5.0); Albumin Globulin Ratio 1.6 (1.0-2.8); Alkaline Phosphatase 93 U/L (38-126); Aspartate Aminotransferase 30 IU/L (14-36); BUN Creatinine Ratio 40.7 (6-22); Bilirubin Total 0.6 mg/dL (0.2-1.3); Blood Urea Nitrogen 33 mg/dL (7-17); Calcium 10.4 mg/dL (8.4-10.2); Carbon Dioxide 26 mmol/L (22-32); Chloride 101 mmol/L (98-107); Cholesterol 234 mg/dL (140-199); Estimated Glomerular Filt Rate > 60 mL/min (>60); Globulin 2.7 g/dL (1.7-4.1); Glucose 101 mg/dL (80-110); HDL Cholesterol 57 mg/dL (40-60); HEMOLYSIS < 15 (0-50); LDL Cholesterol Calculated 127 mg/dL (<100); Phosphorous 2.8 mg/dL (2.8-4.1); Potassium 3.9 mmol/L (3.4-5.1); Sodium 138 mmol/L (137-145); Total Protein 7.1 g/dL (6.3-8.2); Triglycerides 250 mg/dL (35-150)
[2022-04-12 18:33] LABS: Vitamin D 25 Hydroxy (D3) 46.8 ng/mL (30.0-100.0)
[2022-04-12 18:35] LABS: Anisocytosis 1+; Neutrophils Absolute Manual 2730 /uL (3000-5900); Total Cells Counted 100
[2022-04-12 18:36] LABS: Creatinine Urine Random 36.3 mg/dL; Protein (Total) Urine Random 12 mg/dL (0-12); Protein Creatinine Ratio Urine 0.33 GRAM/24H
[2022-04-12 18:40] LABS: Appearance Urine UA CLEAR; Bilirubin Urine UA NEGATIVE (NEGATIVE); Color Urine UA YELLOW; Glucose Urine UA NEGATIVE (Negative); Ketones Urine UA NEGATIVE (NEGATIVE); Leukocyte Esterase Urine UA TRACE (NEGATIVE); Nitrite Urine UA NEGATIVE (Negative); Occult Blood Urine UA NEGATIVE (Negative); Protein Urine UA NEGATIVE (Negative); Urobilinogen Urine UA 0.2 E.U./dL (0.2)
[2022-04-12 19:05] LABS: Bacteria Urine None Seen; Culture Indicated Urine Cult Not Indicated; RBC Urine None Seen (0-5/HPF); Squamous Epithelial Cell Urine 0-1 /HPF (0-5/HPF); Transitional Epi Cells Urine 0-1/HPF (0-5/HPF); WBC Urine None Seen (0-5/HPF)
[2022-04-14 03:46] LABS: Immunoglobulin G, Quantitative 719 mg/dL (586-1602); Immunoglobulin M, Quantitative 56 mg/dL (26-217)
[2022-04-14 07:36] LABS: Toxoplasma gohndii IgG <3.0 IU/mL (0.0-7.1); Toxoplasma gondii IgM <3.0 AU/mL (0.0-7.9)
[2022-04-15 08:28] LABS: Parathyroid Hormone Int 70 pg/mL (15-65)
== END ==
PROVIDERS: PCP Physician Assistant Medical; Referring Provider Internal Medicine; Visit Provider Internal Medicine
DX: Z94.0 Kidney transplant status (principal); Z48.298 Encounter for aftercare following other organ transplant; B34.9 Viral infection, unspecified; T86.90 Unspecified complication of unspecified transplanted organ and tissue; E83.40 Disorders of magnesium metabolism, unspecified
CPT/HCPCS: 36415; 80053; 80061; 81001; 82306; 82570; 82784; 83970; 84100; 84156; 85007; 85025; 86777; 86778; 87497; 87799

== ENCOUNTER → 2022-04-17 11:35 | Outpatient (CLI) | payer MEDICARE, BC, SELFPAY | PROVIDERS: PCP Physician Assistant Medical; Referring Provider Internal Medicine; Visit Provider Internal Medicine | DX: Z48.22 Encounter for aftercare following kidney transplant (principal) | CPT/HCPCS: 36415; 81372 ==

== ENCOUNTER → 2022-10-27 11:31 | Outpatient (CLI) | payer MEDICARE, BC, SELFPAY ==
--- NOTE | 2022-10-27 | DI.RAD.S_ITS ---
PROCEDURE: XR CERVICAL SPINE 2V OR 3V INDICATIONS: Cervical Radiculopathy TECHNIQUE: 3 view(s) of the cervical spine were acquired. COMPARISON: None. FINDINGS: Bones: No acute fractures or dislocations to the T3 level. The lateral masses of C1 appear intact on the odontoid view. No suspicious bony lesions. Extensive postsurgical changes of long segment cervicothoracic spinal fusion extending from C2 through T3. No evidence for hardware loosening or failure. Straightening of cervical lordosis likely related to postsurgical changes. Soft tissues: No prevertebral soft tissue swelling. IMPRESSION: Cervical spine without acute radiographic abnormalities. Postsurgical changes of long segment cervicothoracic spinal fusion from C2 through T3 without evidence hardware complication. Dictated by: Linwood Khan M.D. on 10/27/2022 at 16:20 Approved by: Linwood Khan M.D. on 10/27/2022 at 16:25
--- NOTE | 2022-10-27 | DI.RAD.S_ITS ---
PROCEDURE: XR THORACIC SPINE 2V INDICATIONS: Cervical Radiculopathy TECHNIQUE: 2 views of the thoracic spine were acquired. COMPARISON: [facility], , XR T AND L SPINE 2 TO 3 VIEWS, 01/05/2019, 16:18. FINDINGS: Bones: No acute fractures or dislocations. No suspicious bony lesions. 12 pairs of ribs are noted, and appear intact where visualized. Partially imaged extensive posterior fusion hardware of the cervical spine and upper thoracic spine terminating at the T3 level. No evidence for hardware complication. Partially imaged extensive lumbar spinal fusion hardware without evidence for complication. No acute compression fracture seen. Moderate multilevel thoracic spondylitic changes seen throughout the imaged spine. Soft tissues: No paravertebral stripe thickening. IMPRESSION: Thoracic spine without acute osseous abnormalities. Moderate multilevel thoracic spondylosis. Partially imaged fixation hardware from extensive cervicothoracic and lumbar spinal fusion without evidence for hardware complication. Dictated by: Linwood Khan M.D. on 10/27/2022 at 16:27 Approved by: Linwood Khan M.D. on 10/27/2022 at 16:29
== END ==
PROVIDERS: PCP Physician Assistant Medical; Referring Provider Physician Assistant; Visit Provider Physician Assistant
DX: M54.12 Radiculopathy, cervical region (principal); Z98.1 Arthrodesis status; M47.814 Spondylosis without myelopathy or radiculopathy, thoracic region
CPT/HCPCS: 72040; 72070

== ENCOUNTER → 2022-12-27 14:23 | Outpatient (CLI) | payer MEDICARE, BC, SELFPAY ==
--- NOTE | 2022-12-27 | DI.CT.S_ITS ---
PROCEDURE: CT LUNG LOW DOSE SCREENING INDICATIONS: Centrilobular emphysema TECHNIQUE: Noncontrast 2.0-2.5 mm thick sections acquired from the pulmonary apices to the posterior costophrenic angles. 7 mm thick axial MIP, and 5 mm coronal and sagittal reformats were then acquired. A low radiation dose technique was utilized. COMPARISON: CT, CT CHEST [facility], 05/26/2018, 12:22. [facility], CT, CT LUNG LOW DOSE SCREENING, 10/03/2021, 13:11. FINDINGS: Image quality: Diagnostic, given the low radiation dose technique. Lungs and pleura: There are small lung nodules, unchanged in size. Nodule 1: 2 mm; right upper lobe; series 3, image 36. Nodule 2: 2 mm; left upper lobe; series 3, image 43. Nodule 3: 2 mm; lingula; series 3, image 180. There is a tiny calcified nodule in the right upper lobe. Mediastinum: Heart size is normal. No pericardial effusion. No mediastinal adenopathy by size criteria. Thoracic aorta and central pulmonary arteries are normal in size. Severe aortic calcification. Esophagus is normal in caliber. No hiatal hernia. Bones and chest wall: Scoliosis. No suspicious bony lesions. No vertebral body compression fractures. There are postsurgical changes in the upper thoracic spine and upper lumbar spine. No axillary or supraclavicular adenopathy by size criteria. Thyroid gland is surgically absent. Pectus excavatum. Abdomen: Visualized upper abdomen solid organs and bowel loops appear normal in the absence of contrast. IMPRESSION: 1. Stable small lung nodules. LUNG-RADS 2; recommend annual screening lung CT in 12 months. Dictated by: Alexander Ramirez M.D. on 12/27/2022 at 17:04 Approved by: Alexander Ramirez M.D. on 12/28/2022 at 10:31
== END ==
PROVIDERS: PCP Physician Assistant Medical; Referring Provider Internal Medicine; Visit Provider Internal Medicine
DX: R91.8 Other nonspecific abnormal finding of lung field (principal); Z12.2 Encounter for screening for malignant neoplasm of respiratory organs; J43.2 Centrilobular emphysema; Z87.891 Personal history of nicotine dependence
CPT/HCPCS: 71271

== ENCOUNTER → 2023-01-09 14:16 | Outpatient (CLI) | payer MEDICARE, BC, SELFPAY ==
--- NOTE | 2023-01-09 14:18 | DI.MG.S_ITS ---
BILATERAL DIGITAL SCREENING MAMMOGRAM 3D/2D WITH CAD: 01/09/2023 CLINICAL: Routine screening. Comparison is made to exams dated: 12/12/2020 mammogram - [facility] and 08/30/2015 mammogram - outside location. Both breasts are heterogeneously dense, which may obscure small masses (category c / 51-75% glandular tissue). Current study was also evaluated with a Computer Aided Detection (CAD) system. No significant masses, calcifications, or other findings are seen in either breast. There has been no significant interval change. IMPRESSION: NEGATIVE There is no mammographic evidence of malignancy. A 1 year screening mammogram is recommended. Based on the Tyrer Cuzick model (a risk assessment model) the patient's lifetime risk is 4.2% and her 10 year risk is 2.2%. According to the ACR, ACS, and NCCN guidelines, an annual breast MRI exam along with mammogram is recommended if the patient's lifetime risk is 20% or greater. This exam was interpreted at Station ID: [id number]. NOTE: For mammograms, a report in lay terms will be sent to the patient. Approximately 15% of breast malignancies will not be visualized mammographically. In the management of a palpable breast mass, a negative mammogram must not discourage biopsy of a clinically suspicious lesion. Electronically Signed By: Edd jama/liam:01/09/2023 15:21:31 letter sent: Normal Exam ACR BI-RADS Category 1: Negative [id number]
== END ==
PROVIDERS: PCP Physician Assistant Medical; Referring Provider Physician Assistant Medical; Visit Provider Physician Assistant Medical
DX: Z12.31 Encounter for screening mammogram for malignant neoplasm of breast (principal)
CPT/HCPCS: 77063; 77067

== ENCOUNTER → 2023-11-19 08:01 | Outpatient (CLI) | payer MEDICARE, BC, SELFPAY ==
[2023-11-19 09:01] LABS: Add Manual Diff / Slide Review NO; Basophils Absolute Auto 100 /uL (0-100); Basophils Percent Auto 1.2 % (0-2); Eosinophils Absolute Auto 200 /uL (0-450); Eosinophils Percent Auto 3.3 % (2-4); Hematocrit 33.3 % (36-46); Hemoglobin 11.4 g/dL (12.0-16.0); Lymphocytes Absolute Auto 1600 /uL (1100-4500); Lymphocytes Percent Auto 33.3 % (25-40); Mean Corpuscular HGB Conc 34.1 % (30-36); Mean Corpuscular Hemoglobin 31.3 PG (26-34); Mean Corpuscular Volume 91.7 fL (80-100); Monocytes Absolute Auto 500 /uL (0-900); Monocytes Percent Auto 10.4 % (3-14); Neutrophils Absolute Auto 2600 /uL (1500-7000); Neutrophils Percent Auto 51.8 % (50-75); Platelet Count 239 X10^3/uL (150-400); Red Blood Cell Count 3.63 X10^6/uL (4.0-5.2); Red Cell Distribution Width 13.7 % (11.6-14.8)
[2023-11-19 09:13] LABS: Alanine Aminotransferase 17 IU/L (<35); Albumin 3.7 g/dL (3.5-5.0); Albumin Globulin Ratio 1.7 (1.0-2.8); Alkaline Phosphatase 50 U/L (38-126); Aspartate Aminotransferase 22 IU/L (14-36); BUN Creatinine Ratio 32.5 (6-22); Bilirubin Total 0.4 mg/dL (0.2-1.3); Blood Urea Nitrogen 27 mg/dL (7-17); Calcium 9.8 mg/dL (8.4-10.2); Carbon Dioxide 29 mmol/L (22-32); Chloride 103 mmol/L (98-107); Estimated Glomerular Filt Rate > 60 mL/min (>60); Globulin 2.2 g/dL (1.7-4.1); Glucose 91 mg/dL (80-110); HEMOLYSIS < 15 (0-50); Magnesium 1.8 mg/dL (1.6-2.3); Phosphorous 3.6 mg/dL (2.8-4.1); Potassium 3.8 mmol/L (3.4-5.1); Sodium 137 mmol/L (137-145); Total Protein 5.9 g/dL (6.3-8.2)
[2023-11-19 10:57] LABS: Appearance Urine UA CLEAR; Bilirubin Urine UA NEGATIVE (NEGATIVE); Color Urine UA YELLOW; Glucose Urine UA NEGATIVE (Negative); Ketones Urine UA NEGATIVE (NEGATIVE); Leukocyte Esterase Urine UA TRACE (NEGATIVE); Nitrite Urine UA NEGATIVE (Negative); Occult Blood Urine UA NEGATIVE (Negative); Protein Urine UA NEGATIVE (Negative); Specific Gravity Urine UA 1.015 (1.000-1.035); Urobilinogen Urine UA 0.2 E.U./dL (0.2)
[2023-11-19 11:09] LABS: Bacteria Urine None Seen; Culture Indicated Urine Cult Not Indicated; RBC Urine None Seen (0-5/HPF); Squamous Epithelial Cell Urine None Seen (0-5/HPF); Urine Volume 10mL (spun); WBC Urine 0-1/HPF (0-5/HPF)
[2023-11-20 04:09] LABS: Tacrolimus 4.5 ng/mL (2.0-20.0)
== END ==
LOC: LAB 08:04
PROVIDERS: PCP Physician Assistant Medical; Referring Provider Specialist; Visit Provider Specialist
DX: Z94.0 Kidney transplant status (principal); D84.9 Immunodeficiency, unspecified; B25.9 Cytomegaloviral disease, unspecified
CPT/HCPCS: 36415; 80053; 80197; 81001; 83735; 84100; 85025; 87497

== ENCOUNTER → 2023-11-30 13:10 | Outpatient (CLI) | payer MEDICARE, BC, SELFPAY ==
--- NOTE | 2023-11-30 | DI.CT.S_ITS ---
PROCEDURE: CT CERVICAL SPINE WO CON INDICATIONS: Radiculopathy, cervical region TECHNIQUE: Noncontrast 3 mm thick sections acquired from the skull base to the T4 level. Sagittal and coronal reformats were then constructed. For radiation dose reduction, the following was used: automated exposure control, adjustment of mA and/or kV according to patient size. COMPARISON: None. FINDINGS: Image quality: Excellent. Bones: No fractures or dislocations. Extensive postsurgical change. Status post corpectomy plus interbody fusion hardware extending from C4 through C6 with corpectomy involving C4 and C5. This hardware is intact without hardware failure or loosening. There is remote ACDF at C3-C4. The C3 screw fixation remains. The inferior fusion screws are no longer present. This surgery likely occurred prior to the corpectomy. There is extensive cervical decompressive laminectomy extending from C2 through T1 with cervical thoracic posterior lateral hardware fusion. Fusion hardware fixates C2 through T3. The locations of the hardware are intact with no evidence of hardware failure or loosening. Decompression results in no residual canal stenosis. There is severe right bony foraminal narrowing at C5-C6. There is right bony foraminal narrowing at C7-T1. There is severe left bony foraminal narrowing at C3-C4 and left bony foraminal narrowing at C5-C6 and C7-T1. Visualized superior ribs are intact. Soft tissues: Prevertebral soft tissues are normal in thickness. No paravertebral hematomas. No apical pneumothoraces. IMPRESSION: Extensive previous cervical surgery with extensive cervical hardware, felt to be intact without hardware failure or loosening. Extensive decompressive laminectomy with no residual canal stenosis. Multilevel bony foraminal narrowing as described above. Dictated by: Nathaniel Stearns M.D. on 12/01/2023 at 8:34 Approved by: Nathaniel Stearns M.D. on 12/01/2023 at 8:42
== END ==
LOC: CT 13:12
PROVIDERS: PCP Physician Assistant Medical; Referring Provider Neurological Surgery; Visit Provider Neurological Surgery
DX: M54.12 Radiculopathy, cervical region (principal); M48.02 Spinal stenosis, cervical region; M54.16 Radiculopathy, lumbar region; M48.062 Spinal stenosis, lumbar region with neurogenic claudication; Z98.1 Arthrodesis status
CPT/HCPCS: 72125

== ENCOUNTER 2024-10-17 22:56 | Emergency (ER) | payer MEDICARE, BC, SELFPAY ==
[2024-10-17 23:01] VITALS: BP 164/72; PULSE 74; RESP 22; TEMP 36.6; O2SAT 96
--- NOTE | 2024-10-17 23:23 | DI.CT.S_ITS ---
PROCEDURE: CT CERVICAL SPINE WO CON INDICATIONS: fall, hx of fusion TECHNIQUE: Noncontrast 3 mm thick sections acquired from the skull base to the T4 level. Sagittal and coronal reformats were then constructed. For radiation dose reduction, the following was used: automated exposure control, adjustment of mA and/or kV according to patient size. COMPARISON: [facility], CT, CT CERVICAL SPINE WO CON, 11/30/2023, 13:17. FINDINGS: Image quality: Excellent. Bones: No fractures or dislocations. Visualized superior ribs are intact. Anterior and posterior surgical fusion of the cervical thoracic spine. No hardware complication. Corpectomy C3-4. Diffuse facet arthrosis. Grade 1 retrolisthesis of C4 and C5 on C6. Multilevel laminectomy. Soft tissues: Prevertebral soft tissues are normal in thickness. No paravertebral hematomas. No apical pneumothoraces. IMPRESSION: No displaced fracture or traumatic subluxation. Extensive surgical changes of the cervical thoracic spine, without hardware complication. Dictated by: Raj Patricia M.D. on 10/17/2024 at 23:55 Approved by: Raj Patricia M.D. on 10/17/2024 at 23:57
--- NOTE | 2024-10-17 23:23 | DI.CT.S_ITS ---
PROCEDURE: CT HEAD/BRAIN WO CON INDICATIONS: fall with laceration TECHNIQUE: Noncontrast 4.5 mm thick angled axial sections acquired from the foramen magnum to the vertex, with coronal and sagittal reformats. For radiation dose reduction, the following was used: automated exposure control, adjustment of mA and/or kV according to patient size. COMPARISON: None. FINDINGS: Image quality: Diagnostic. CSF spaces: Basal cisterns are patent. No extra-axial fluid collections. The ventricles are symmetric in size and shape. Brain: No intracranial bleeds or mass effect. There is cerebral volume loss, with resultant ventricular and sulcal prominence. There are periventricular and deep white matter chronic small vessel ischemic changes. There is intracranial internal carotid artery atherosclerosis. Skull and face: Calvarium and visualized facial bones appear intact, without suspicious lesions. Sinuses: Visualized sinuses and mastoids are clear. IMPRESSION: No acute intracranial pathology. Dictated by: Raj Patricia M.D. on 10/17/2024 at 23:54 Approved by: Raj Patricia M.D. on 10/17/2024 at 23:55
--- NOTE | 2024-10-18 01:52 | PC.NURSE ---
Wound cleansed and irrigated with 250ml NS
[2024-10-18 01:54] VITALS: BP 165/72
--- NOTE | 2024-10-18 01:56 | ED.WOUNDLAC ---
HPI - Wound/Laceration General Chief Complaint: Wound/Laceration Stated Complaint: Fell, wound back of head Time Seen by Provider: 10/18/24 01:34 Source: patient Mode of arrival: Wheelchair History of Present Illness HPI narrative: 69-year-old female with history of remote kidney transplant on immunosuppressive therapy, prior cervical spine surgeries, was standing at her kitchen looking down and believes that she might have fallen asleep, and then fell backwards striking the back of her head. No antecedent chest pain or shortness of breath, shaking seizure activity, incontinence, focal weakness, focal numbness, trouble breathing, palpitations. She had a similar event for years ago, resulting in a right wrist fracture that was casted. From the fall itself she sustained injury laceration to the back of her head. Previous spinal surgeries, denies discomfort to the thoracic spine and lumbar spine. Chronic neck pain about the same. No weakness or numbness to the arms or legs. Denies nausea or vomiting. Related Data Home Medications ?Medication ?Instructions ?Recorded ?Confirmed albuterol sulfate 90 mcg/actuation 1 inh inhalation ONCE 08/03/20 12/16/20 aerosol inhaler allopurinol 100 mg tablet 100 mg PO DAILY 08/03/20 12/16/20 aspirin 81 mg tablet,delayed 81 mg PO DAILY 08/03/20 12/16/20 release (Adult Aspirin Regimen) atorvastatin 40 mg tablet 40 mg PO DAILY 08/03/20 12/16/20 carvedilol 25 mg tablet 25 mg PO BID 08/03/20 12/16/20 clonidine HCl 0.1 mg tablet 0.05 mg PO BID 08/03/20 12/16/20 duloxetine 60 mg capsule,delayed 60 mg PO DAILY 08/03/20 12/16/20 release furosemide 80 mg tablet 80 mg PO DAILY 08/03/20 12/16/20 gabapentin 600 mg tablet 600 mg PO DAILY 08/03/20 12/16/20 hydralazine 25 mg tablet 25 mg PO TID 08/03/20 12/16/20 lorazepam 1 mg tablet 1 mg PO DAILY PRN Shortness Of 08/03/20 12/16/20 Breath metolazone 5 mg tablet 5 mg PO DAILY 08/03/20 12/16/20 potassium chloride 20 mEq oral 20 meq PO DAILY 08/03/20 12/16/20 packet ropinirole 1 mg tablet 1 mg PO DAILY 08/03/20 12/16/20 sertraline 50 mg tablet 50 mg PO DAILY 08/03/20 12/16/20 telmisartan 40 mg tablet 40 mg PO DAILY 08/03/20 12/16/20 tizanidine 4 mg capsule 4 mg PO BEDTIME 08/03/20 12/16/20 budesonide-formoterol HFA 160 2 puff inhalation BID 09/23/20 12/16/20 mcg-4.5 mcg/actuation aerosol inhaler (Symbicort) Previous Rx's ?Medication ?Instructions ?Recorded omeprazole 20 mg capsule,delayed See Rx Instructions .Route 09/23/20 release .COMPLEX #180 caps Allergies Allergy/AdvReac Type Severity Reaction Status Date / Time No Known Drug Allergies Allergy Verified 10/17/24 23:01 Patient History Medical History Anxiety Essential hypertension with goal blood pressure less than 130/85 Renal failure, chronic Social History household members: spouse Smoking Status: Former smoker alcohol intake: current Smoking Status: Former smoker alcohol intake frequency: 0-2 drinks per day Exam Narrative Exam Narrative: GENERAL: Well-developed patient, in mild distress. HEAD: Atraumatic. Normocephalic. Occipital midline laceration wearing a 1.5 cm, no crepitance. EYES: Pupils equal round and reactive. Extraocular motions intact. No scleral icterus. No injection or drainage. ENT: Nose without bleeding, purulent drainage. Throat without erythema, tonsillar hypertrophy or exudate. Airway patent. No tenderness posterior neck, or paraspinal musculature. NECK: Trachea midline. Non tender CARDIOVASCULAR: Regular rate and rhythm without murmurs, gallops, or rubs. RESPIRATORY: Clear to auscultation. Breath sounds equal bilaterally. No wheezes, rales, or rhonchi. GASTROINTESTINAL: Abdomen soft, non-tender, nondistended. EXTREMITIES: No edema or joint tenderness. BACK: Nontender without deformity or crepitance. No flank tenderness. Well-healed low midline surgical scar, no tenderness midline or paraspinous lumbar or thoracic spine. No skin changes or bruising. NEURO: AOx3. Motor functions grossly nonfocal. SKIN: No rash or erythema of visible areas Initial Vital Signs Initial Vital Signs: Vital Signs Temperature 97.9 F 10/17/24 23:01 Pulse Rate 74 10/17/24 23:01 Respiratory Rate 22 10/17/24 23:01 Blood Pressure 164/72 H 10/17/24 23:01 Pulse Oximetry 96 10/17/24 23:01 Oxygen Delivery Method Room Air 10/17/24 23:01 Procedures Laceration Repair Laceration 1: Time of procedure: 01:58 Site: scalp Size (cm): 1.5 Description: linear Skin layer closed with: meri Number of sutures: 3 Course Orders Ordered: Discontinued Medications Bacitracin (Bacitracin Oint 0.9 Gm Pckt) 1 applic TOP NOW ONE Stop: 10/18/24 02:41 Last Admin: 10/18/24 02:44 Dose: 1 applic Documented By: MASON Diphtheria/Tetanus/Acell Pertussis (Tet,Diph,Pertuss(Acell),Vac/Pf 0.5 Ml Syringe) 0.5 ml IM .ONCE ONE Stop: 10/18/24 02:22 Last Admin: 10/18/24 02:31 Dose: 0.5 ml Documented By: MASON Tramadol HCl (Tramadol 50 Mg Prepack) 1 bottle MISC DIRECTED ONE Stop: 10/18/24 02:41 Last Admin: 10/18/24 02:44 Dose: 1 bottle Documented By: MASON Vital Signs Vital signs: Vital Signs - 8 hr 10/18/24 01:54 10/18/24 02:49 Pulse Rate 73 Respiratory Rate 18 Blood Pressure 165/72 H 159/78 H Pulse Oximetry 95 Oxygen Delivery Method Room Air MDM - Wound/Laceration Imaging Data CT scan - head: Radiologist's Impression: [place] [address] CT Scan Report Signed Patient: Jael Weaver MR#: [id number] : 1955 Acct:[id number] Age/Sex: 69 / F Date of Service: 10/17/24 Loc: ED Accession Number: [id number] Procedure: CT head/brain wo con Ordering Provider: Kristian Perales MD PROCEDURE: CT HEAD/BRAIN WO CON INDICATIONS: fall with laceration TECHNIQUE: Noncontrast 4.5 mm thick angled axial sections acquired from the foramen magnum to the vertex, with coronal and sagittal reformats. For radiation dose reduction, the following was used: automated exposure control, adjustment of mA and/or kV according to patient size. COMPARISON: None. FINDINGS: Image quality: Diagnostic. CSF spaces: Basal cisterns are patent. No extra-axial fluid collections. The ventricles are symmetric in size and shape. Brain: No intracranial bleeds or mass effect. There is cerebral volume loss, with resultant ventricular and sulcal prominence. There are periventricular and deep white matter chronic small vessel ischemic changes. There is intracranial internal carotid artery atherosclerosis. Skull and face: Calvarium and visualized facial bones appear intact, without suspicious lesions. Sinuses: Visualized sinuses and mastoids are clear. IMPRESSION: No acute intracranial pathology. Dictated by: Raj Patricia M.D. on 10/17/2024 at 23:54 Approved by: Raj Patricia M.D. on 10/17/2024 at 23:55 CT - cervical spine: Radiologist's Impression: [place] [address] CT Scan Report Signed Patient: Jael Weaver MR#: [id number] : 1955 Acct:[id number] Age/Sex: 69 / F Date of Service: 10/17/24 Loc: ED Accession Number: [id number] Procedure: CT cervical spine wo con Ordering Provider: Kristian Perales MD PROCEDURE: CT CERVICAL SPINE WO CON INDICATIONS: fall, hx of fusion TECHNIQUE: Noncontrast 3 mm thick sections acquired from the skull base to the T4 level. Sagittal and coronal reformats were then constructed. For radiation dose reduction, the following was used: automated exposure control, adjustment of mA and/or kV according to patient size. COMPARISON: [facility], CT, CT CERVICAL SPINE WO CON, 11/30/2023, 13:17. FINDINGS: Image quality: Excellent. Bones: No fractures or dislocations. Visualized superior ribs are intact. Anterior and posterior surgical fusion of the cervical thoracic spine. No hardware complication. Corpectomy C3-4. Diffuse facet arthrosis. Grade 1 retrolisthesis of C4 and C5 on C6. Multilevel laminectomy. Soft tissues: Prevertebral soft tissues are normal in thickness. No paravertebral hematomas. No apical pneumothoraces. IMPRESSION: No displaced fracture or traumatic subluxation. Extensive surgical changes of the cervical thoracic spine, without hardware complication. Dictated by: Raj Patricia M.D. on 10/17/2024 at 23:55 Approved by: Raj Patricia M.D. on 10/17/2024 at 23:57 MDM Narrative Medical decision making narrative: 69-year-old female on aspirin but no other blood thinner medications had fall from standing position believes she fell asleep with a sink. She had occipital scalp laceration, repaired with [address] head and cervical spine imaging negative. Hold cervical spine postoperative changes noted. No thoracic or lumbar spine discomfort, the rest of the spine was not injured tonight. Tetanus update given. See procedure note, primary closure with meri. Dressed with antibiotic ointment. We had a discussion about the cause of her fall, she had had similar happen in the past, believes that she fell asleep standing again. We discussed lab evaluation that might include EKG, lab testing, to look for other causes of passing out or falls or syncope, she does not want to have any further testing at this time, requests to go home. at bedside seems supportive of her decision. Return precautions discussed. Discharged home per patient request. Consider wound check in the next 2 days, likely staple removal in clinic at one-week. Discharge Plan Departure Patient Disposition: Home Clinical Impression: Laceration of scalp, Fall from ground level Activity Restrictions/Additional Instructions: History of prior neck and back surgeries, kidney transplant in the past, standing at sink tonight with a fall backwards, thought that you fell asleep in standing position and then fell backwards, apparently have had this happened to in the past. You did not recall any preceding weakness, chest pain, shortness of breath, palpitation, heart racing symptoms, focal numbness symptoms before your fall. Subsequent to your fall you had a laceration to the back of your head. Neck discomfort about the same with chronic neck pain, no increased thoracic or low back pain. CT head and CT cervical spine imaging were done, postoperative neck changes noted, no brain injuries, no neck injuries identified. Staple closure was done with the wound. Tetanus was updated. We had discussion about the cause of your fall, you had had similar event in the past. We offered further testing and evaluation such as EKG and blood work testing and monitoring for longer here in the emergency department to look for any causes of fall. You declined these evaluations. You felt better, and requested to be discharged home, home with . Follow up with your regular doctor in the next 2 days for wound check advised, staple removal likely had 7 days. Follow up with your Nephrology/transplant team as scheduled. Return to this/nearest emergency department for any change worsening symptoms or any concerns prior. Prescriptions: No Action omeprazole 20 mg capsule,delayed release(DR/EC) See Rx Instructions .ROUTE .COMPLEX Qty: 180 0RF Dose Instruction: TAKE 1 CAPSULE BY MOUTH TWICE DAILY Rx Instructions: TAKE 1 CAPSULE BY MOUTH TWICE DAILY budesonide-formoterol [Symbicort] 160-4.5 mcg/actuation Hfa Aerosol Inhaler 2 puff INHALATION BID albuterol sulfate 90 mcg/actuation HFA aerosol inhaler 1 inh inhalation ONCE allopurinol 100 mg tablet 100 mg PO DAILY aspirin [Adult Aspirin Regimen] 81 mg tablet,delayed release (DR/EC) 81 mg PO DAILY atorvastatin 40 mg tablet 40 mg PO DAILY carvedilol 25 mg tablet 25 mg PO BID Rx Instructions: must administer with a meal/food clonidine HCl 0.1 mg tablet 0.05 mg PO BID duloxetine 60 mg capsule,delayed release(DR/EC) 60 mg PO DAILY furosemide 80 mg tablet 80 mg PO DAILY gabapentin 600 mg tablet 600 mg PO DAILY hydralazine 25 mg tablet 25 mg PO TID lorazepam 1 mg tablet 1 mg PO DAILY PRN (Reason: Shortness Of Breath) metolazone 5 mg tablet 5 mg PO DAILY Rx Instructions: on hold potassium chloride 20 mEq packet 20 meq PO DAILY Rx Instructions: on hold ropinirole 1 mg tablet 1 mg PO DAILY sertraline 50 mg tablet 50 mg PO DAILY telmisartan 40 mg tablet 40 mg PO DAILY tizanidine 4 mg capsule 4 mg PO BEDTIME Referrals: Marifer Rose PA-C [Primary Care Provider, Medical] Stand Alone Forms: Patient Portal/API
[2024-10-18] MEDS: TET,DIPH,PERTUSS(ACELL),VAC/PF 0.5 ML SYRINGE IM (02:31)
[2024-10-18] MEDS: BACITRACIN OINT 0.9 GM PCKT 1 APPLIC TOP (02:44)
[2024-10-18] MEDS: TRAMADOL 50 MG PREPACK 1 BOTTLE MISC (02:44)
[2024-10-18 02:49] VITALS: BP 159/78; PULSE 73; RESP 18; O2SAT 95
== END 2024-10-18 02:51 | disposition home or self-care (01) ==
PROVIDERS: Emergency Provider Emergency Medicine; PCP Physician Assistant Medical
DX: S01.01XA Laceration without foreign body of scalp, initial encounter (principal); W18.30XA Fall on same level, unspecified, initial encounter; Z23 Encounter for immunization
CPT/HCPCS: 12001; 70450; 72125; 90471; 99283; 99284; 90715

== ENCOUNTER → 2025-03-10 08:28 | Outpatient (CLI) | payer MEDICARE, BC, SELFPAY ==
[2025-03-10 10:05] LABS: Add Manual Diff / Slide Review NO; Hematocrit 38.1 % (36-46); Hemoglobin 12.9 g/dL (12.0-16.0); Lymphocytes Absolute Auto 1600 /uL (1100-4500); Mean Corpuscular HGB Conc 33.9 % (30-36); Mean Corpuscular Hemoglobin 32.2 PG (26-34); Mean Corpuscular Volume 94.8 fL (80-100); Platelet Count 174 X10^3/uL (150-400)
[2025-03-10 10:25] LABS: Appearance Urine UA CLEAR; Bilirubin Urine UA NEGATIVE (NEGATIVE); Color Urine UA YELLOW; Glucose Urine UA NEGATIVE (Negative); Ketones Urine UA NEGATIVE (NEGATIVE); Leukocyte Esterase Urine UA 1+ (NEGATIVE); Nitrite Urine UA NEGATIVE (Negative); Occult Blood Urine UA NEGATIVE (Negative); Protein Urine UA NEGATIVE (Negative); Specific Gravity Urine UA 1.025 (1.000-1.035); Urobilinogen Urine UA 0.2 E.U./dL (0.2)
[2025-03-10 10:27] LABS: pH Urine UA 5.5 (4.5-8.0)
[2025-03-10 10:29] LABS: Alanine Aminotransferase 18 IU/L (<35); Albumin 4.4 g/dL (3.5-5.0); Albumin Globulin Ratio 1.9 (1.0-2.8); Alkaline Phosphatase 50 U/L (38-126); Blood Urea Nitrogen 34 mg/dL (7-17); Calcium 10.0 mg/dL (8.4-10.2); Carbon Dioxide 26 mmol/L (22-32); Chloride 103 mmol/L (98-107); Estimated Glomerular Filt Rate 57 mL/min (>60); Globulin 2.3 g/dL (1.7-4.1); Glucose 96 mg/dL (70-99); HEMOLYSIS < 15 (0-50); Magnesium 1.4 mg/dL (1.6-2.3); Potassium 4.1 mmol/L (3.4-5.1); Sodium 136 mmol/L (137-145); Total Protein 6.7 g/dL (6.3-8.2)
[2025-03-10 10:30] LABS: Culture Indicated Urine Specimen Cultured
[2025-03-10 10:48] LABS: Microalbumi Creatinin Ratio Ur 9.0 ug/mg CR (<30)
[2025-03-13 14:36] LABS: CMV QNT DNA PCR Negative copies/mL (Negative)
== END ==
PROVIDERS: PCP Physician Assistant Medical; Visit Provider Internal Medicine Nephrology
DX: E83.42 Hypomagnesemia (principal); B25.8 Other cytomegaloviral diseases; D84.9 Immunodeficiency, unspecified; I10 Essential (primary) hypertension; Z94.0 Kidney transplant status
CPT/HCPCS: 36415; 80053; 80197; 81001; 82043; 82570; 83735; 85025; 87086; 87497; 87799